=== PATIENT | male | born 1980 | race Caucasian/White ===

== ENCOUNTER 2017-05-31 15:56 | Inpatient (IN) | payer BC, OTHER ==
[2017-05-31] MEDS: SOD CHLORIDE 0.9% 1,000 ML IV ×2 (20:31→22:54)
[2017-05-31] MEDS: ONDANSETRON 4 MG INJ IV ×2 (20:31→22:07)
[2017-05-31 20:46] LABS: ADD MAN DIFF? NO
[2017-05-31 20:48] LABS: WHITE BLOOD COUNT 12.9 10^3/ul (4.8-10.8)
[2017-05-31 20:48] LABS: BASOPHILS % 0.2 % (0.0-2.0); HEMATOCRIT 37.1 % (42.0-52.0); LYMPHOCYTES # 1.4 10^3/ul (0.8-2.9); LYMPHOCYTES % 10.8 % (15.0-51.0); MEAN CORPUSCULAR HEMOGLOBIN 30.3 pg (29.0-33.0); MEAN CORPUSCULAR VOLUME 86.5 fl (82.0-101.0); MONOCYTE # 1.2 10^3/ul (0.3-0.9); MONOCYTES % 9.4 % (0.0-11.0); NEUTROPHIL # 10.2 10^3/ul (1.6-7.5); NEUTROPHILS % 78.9 % (39.0-77.0); PLATELET COUNT 234 10^3/UL (140-415); RED BLOOD COUNT 4.29 10^6/ul (4.70-6.10); RED CELL DISTRIBUTION WIDTH 11.8 % (11.5-14.5)
[2017-05-31 21:13] LABS: ALANINE AMINOTRANSFERASE 48 IU/L (13-69); ALBUMIN 4.8 g/dl (3.3-4.9); ALBUMIN/GLOBULIN RATIO 1.45; ALKALINE PHOSPHATASE 102 IU/L (42-121); ANION GAP 32 (8-16); ASPARTATE AMINO TRANSFERASE 30 IU/L (15-46); BILIRUBIN,INDIRECT 0.9 mg/dl (0-1.1); BILIRUBIN,TOTAL 0.9 mg/dl (0.2-1.3); BLOOD UREA NITROGEN 37 mg/dl (7-20); CALCIUM 10.2 mg/dl (8.4-10.2); CARBON DIOXIDE 18 mmol/L (21-31); CHLORIDE 88 mmol/L (97-110); CREATININE 1.04 mg/dl (0.61-1.24); GLUCOSE 328 mg/dl (70-220); LIPASE 28 U/L (23-300); POTASSIUM 4.7 mmol/L (3.5-5.1); SODIUM 133 mmol/L (135-144); TOTAL PROTEIN 8.1 g/dl (6.1-8.1)
[2017-05-31] MEDS ORDERED: DEXTROSE 50% 50 ML SYRINGE IV ×2 (23:30)
[2017-05-31] MEDS: ACCU-CHEK XX (23:48)
[2017-05-31] MEDS: INSULIN REGULAR, HUMAN 100 UNIT/1 ML 3ML VIAL SC (23:48)
[2017-06-01] MEDS: ACCU-CHEK XX ×9 (00:30→20:05)
[2017-06-01] MEDS ORDERED: DOCUSATE SODIUM 100 MG CAP PO (01:30)
[2017-06-01] MEDS ORDERED: BISACODYL (EC) 5 MG TAB PO (01:30)
[2017-06-01] MEDS ORDERED: DEXTROSE 50% 50 ML SYRINGE IV ×6 (01:30→16:00)
[2017-06-01 01:40] LABS: ADD UMIC YES; UR ASCORBIC ACID NEGATIVE (NEGATIVE); UR BILIRUBIN (Dip) NEGATIVE (NEGATIVE); UR BLOOD (Dip) 1+ mg/dL (NEGATIVE); UR CLARITY CLEAR (CLEAR); UR COLOR STRAW (YELLOW); UR GLUCOSE (Dip) 3+ mg/dL (NEGATIVE); UR KETONES (Dip) 2+ mg/dL (NEGATIVE); UR LEUKOCYTE ESTERASE (Dip) NEGATIVE Leu/ul (NEGATIVE); UR NITRITE (Dip) NEGATIVE (NEGATIVE); UR RBC 1 /HPF (0-5); UR TOTAL PROTEIN (Dip) 1+ mg/dl (NEGATIVE); UR UROBILINOGEN (Dip) NEGATIVE (NEGATIVE); UR WBC 1 /HPF (0-5)
[2017-06-01 01:46] LABS: ANION GAP 27 (8-16); BLOOD UREA NITROGEN 31 mg/dl (7-20); CALCIUM 9.1 mg/dl (8.4-10.2); CARBON DIOXIDE 17 mmol/L (21-31); CHLORIDE 98 mmol/L (97-110); GLUCOSE 226 mg/dl (70-220); POTASSIUM 4.5 mmol/L (3.5-5.1); SODIUM 137 mmol/L (135-144)
[2017-06-01] MEDS ORDERED: INSULIN HUMAN REGULAR 100 UNIT in SOD CHLORIDE 0.9% 99 ML IV ×2 (02:00→08:30)
[2017-06-01 02:04] LABS: PHOSPHORUS 4.5 mg/dl (2.5-4.9)
[2017-06-01] MEDS: ONDANSETRON 4 MG INJ IV ×4 (02:10→18:53)
[2017-06-01] MEDS: morphine 2 MG INJ IV ×3 (02:10→18:50)
[2017-06-01] MEDS: D5-NS + KCL 20 MEQ 1,000 ML IV (02:30)
[2017-06-01 02:47] LABS: ACETONE POSITIVE 1:1 (NEGATIVE)
[2017-06-01] MEDS: DEXTROSE 5%-0.45% NACL 1,000 ML IV (03:05)
[2017-06-01] MEDS: INSULIN HUMAN REGULAR 100 UNIT in SOD CHLORIDE 0.9% 99 ML IV (03:16)
[2017-06-01 03:27] LABS: HEMOGLOBIN A1C 10.8 % (0-5.9)
[2017-06-01] MEDS: METOCLOPRAMIDE 10 MG INJ IV ×4 (05:22→22:20)
[2017-06-01] MEDS: PANTOPRAZOLE 40 MG INJ IV (05:22)
[2017-06-01] MEDS: DIPHENHYDRAMINE 50 MG INJ IV (05:22)
[2017-06-01] MEDS: BISACODYL 30 ML ENEMA PR (06:30)
[2017-06-01 06:50] LABS: ANION GAP 14 (8-16); BLOOD UREA NITROGEN 30 mg/dl (7-20); CALCIUM 8.8 mg/dl (8.4-10.2); CARBON DIOXIDE 26 mmol/L (21-31); CHLORIDE 100 mmol/L (97-110); CREATININE 0.79 mg/dl (0.61-1.24); GLUCOSE 126 mg/dl (70-220); POTASSIUM 3.8 mmol/L (3.5-5.1); SODIUM 136 mmol/L (135-144)
[2017-06-01 07:43] LABS: HEMOGLOBIN A1C 11.1 % (0-5.9)
[2017-06-01 07:47] LABS: HDL CHOLESTEROL 87 mg/dl (28-63); LDL CHOLESTEROL,CALCULATED 146 mg/dl; TRIGLYCERIDES 175 mg/dl (0-149)
[2017-06-01 07:47] LABS: CHOLESTEROL 268 mg/dl (100-200)
[2017-06-01 08:10] LABS: AMPHETAMINE/METHAMPHETAMINE Negative (NEGATIVE); BARBITURATES Negative (NEGATIVE); BENZODIAZEPINES Negative (NEGATIVE); CANNABINOIDS Negative (NEGATIVE); COCAINE Negative (NEGATIVE); OPIATES Negative (NEGATIVE)
[2017-06-01] MEDS: POTASSIUM CHLORIDE (SR) 20 MEQ TAB PO (08:15)
[2017-06-01] MEDS: ACETAMINOPHEN 325 MG TAB PO (08:16)
[2017-06-01 08:29] LABS: PHOSPHORUS 4.6 mg/dl (2.5-4.9)
[2017-06-01] MEDS ORDERED: INSULIN GLARGINE [LANtus] 3 ML PEN SC (08:30)
[2017-06-01] MEDS ORDERED: ONDANSETRON 4 MG INJ IV ×2 (09:00→11:34)
[2017-06-01] MEDS ORDERED: ACETAMINOPHEN 325 MG TAB PO (09:00)
[2017-06-01 09:56] LABS: ANION GAP 17 (8-16); BLOOD UREA NITROGEN 24 mg/dl (7-20); CARBON DIOXIDE 24 mmol/L (21-31); CHLORIDE 101 mmol/L (97-110); CREATININE 0.76 mg/dl (0.61-1.24); GLUCOSE 106 mg/dl (70-220); POTASSIUM 3.8 mmol/L (3.5-5.1); SODIUM 138 mmol/L (135-144)
[2017-06-01] MEDS ORDERED: morphine 4 MG/ML VIAL IV (11:34)
[2017-06-01] MEDS ORDERED: POTASSIUM CHLORIDE (1.33 MEQ/ML PO SYG) PO (12:00)
[2017-06-01] MEDS ORDERED: POTASSIUM CHLORIDE 20 MEQ POWDER FOR ORAL SOLN PO (12:30)
[2017-06-01 14:46] LABS: ANION GAP 15 (8-16); BLOOD UREA NITROGEN 23 mg/dl (7-20); CALCIUM 8.7 mg/dl (8.4-10.2); CARBON DIOXIDE 23 mmol/L (21-31); CHLORIDE 99 mmol/L (97-110); CREATININE 0.79 mg/dl (0.61-1.24); GLUCOSE 158 mg/dl (70-220); POTASSIUM 3.8 mmol/L (3.5-5.1); SODIUM 133 mmol/L (135-144)
[2017-06-01] MEDS: POTASSIUM CHLORIDE 50 ML IVPB (14:53)
[2017-06-01] MEDS: SOD CHLORIDE 0.9% 1,000 ML IV (14:53)
[2017-06-01] MEDS ORDERED: GLUCOSE GEL 15 GRAM TUBE BUCCAL ×2 (15:00→16:00)
[2017-06-01] MEDS ORDERED: GLUCAGON 1 MG INJ IM ×2 (15:00→16:00)
[2017-06-01] MEDS ORDERED: GLUCOSE GEL 15 GRAM TUBE PO ×4 (15:00→16:00)
[2017-06-01] MEDS ORDERED: LACTATED RINGER'S 1,000 ML IV (16:00)
[2017-06-01 17:16] LABS: ANION GAP 17 (8-16); BLOOD UREA NITROGEN 23 mg/dl (7-20); CALCIUM 8.8 mg/dl (8.4-10.2); CARBON DIOXIDE 22 mmol/L (21-31); CHLORIDE 98 mmol/L (97-110); CREATININE 0.74 mg/dl (0.61-1.24); GLUCOSE 184 mg/dl (70-220); POTASSIUM 4.2 mmol/L (3.5-5.1); SODIUM 133 mmol/L (135-144)
[2017-06-01] MEDS: INSULIN ASPART [NOVOLOG] 3 ML PEN SC ×3 (17:35→22:32)
[2017-06-01] MEDS: LACTULOSE 30ML CUP PO (18:03)
[2017-06-01] MEDS: MAGNESIUM CITRATE 300 ML BTL PO (18:55)
[2017-06-01] MEDS: ATORVASTATIN 40 MG TAB PO (21:00)
[2017-06-01 21:19] LABS: ANION GAP 17 (8-16); BLOOD UREA NITROGEN 22 mg/dl (7-20); CALCIUM 8.9 mg/dl (8.4-10.2); CARBON DIOXIDE 21 mmol/L (21-31); CHLORIDE 98 mmol/L (97-110); CREATININE 0.78 mg/dl (0.61-1.24); GLUCOSE 215 mg/dl (70-220); POTASSIUM 4.2 mmol/L (3.5-5.1); SODIUM 132 mmol/L (135-144)
[2017-06-01] MEDS: LORAZEPAM 2 MG INJ IV (23:41)
[2017-06-02] MEDS: ACCU-CHEK XX ×4 (02:00→20:01)
[2017-06-02] MEDS: METOCLOPRAMIDE 10 MG INJ IV ×4 (04:05→22:17)
[2017-06-02] MEDS: PANTOPRAZOLE 40 MG INJ IV (05:26)
[2017-06-02 05:28] LABS: ADD MAN DIFF? NO
[2017-06-02 05:51] LABS: WHITE BLOOD COUNT 6.1 10^3/ul (4.8-10.8)
[2017-06-02 05:51] LABS: BASOPHILS % 0.2 % (0.0-2.0); HEMATOCRIT 32.4 % (42.0-52.0); HEMOGLOBIN 11.5 g/dl (14.0-18.0); LYMPHOCYTES # 1.4 10^3/ul (0.8-2.9); LYMPHOCYTES % 23.5 % (15.0-51.0); MEAN CORPUSCULAR HEMOGLOBIN 30.4 pg (29.0-33.0); MEAN CORPUSCULAR HGB CONC 35.5 g/dl (32.0-37.0); MEAN CORPUSCULAR VOLUME 85.7 fl (82.0-101.0); MEAN PLATELET VOLUME 9.1 fl (7.4-10.4); MONOCYTE # 0.7 10^3/ul (0.3-0.9); MONOCYTES % 11.6 % (0.0-11.0); NEUTROPHILS % 64.4 % (39.0-77.0); PLATELET COUNT 196 10^3/UL (140-415); RED BLOOD COUNT 3.78 10^6/ul (4.70-6.10); RED CELL DISTRIBUTION WIDTH 11.5 % (11.5-14.5)
[2017-06-02 06:20] LABS: PHOSPHORUS 2.8 mg/dl (2.5-4.9)
[2017-06-02 06:35] LABS: ANION GAP 20 (8-16); BLOOD UREA NITROGEN 21 mg/dl (7-20); CALCIUM 8.9 mg/dl (8.4-10.2); CARBON DIOXIDE 23 mmol/L (21-31); CHLORIDE 96 mmol/L (97-110); CREATININE 0.79 mg/dl (0.61-1.24); GLUCOSE 226 mg/dl (70-220); MAGNESIUM 2.4 mg/dl (1.7-2.5); SODIUM 135 mmol/L (135-144)
[2017-06-02] MEDS ORDERED: VANCOMYCIN IV PER PHARMACY XX (07:30)
[2017-06-02] MEDS: INSULIN ASPART [NOVOLOG] 3 ML PEN SC ×7 (08:19→20:07)
[2017-06-02] MEDS: INSULIN GLARGINE [LANtus] 3 ML PEN SC (08:20)
[2017-06-02] MEDS: VANCOMYCIN 1.25 GM in SODIUM CHLORIDE 0.45 % 250 ML IVPB (09:13)
[2017-06-02] MEDS: VANCOMYCIN 750 MG in DEXTROSE 5% 150 ML IVPB (17:23)
[2017-06-02] MEDS: ATORVASTATIN 40 MG TAB PO (20:02)
[2017-06-03] MEDS: VANCOMYCIN 750 MG in DEXTROSE 5% 150 ML IVPB ×3 (01:11→17:03)
[2017-06-03] MEDS: ACCU-CHEK XX ×4 (02:46→19:42)
[2017-06-03] MEDS: METOCLOPRAMIDE 10 MG INJ IV ×4 (05:23→22:00)
[2017-06-03] MEDS: PANTOPRAZOLE 40 MG INJ IV (05:24)
[2017-06-03] MEDS: INSULIN ASPART [NOVOLOG] 3 ML PEN SC ×8 (08:03→23:14)
[2017-06-03] MEDS: INSULIN GLARGINE [LANtus] 3 ML PEN SC (08:04)
[2017-06-03 08:31] LABS: ADD MAN DIFF? NO
[2017-06-03 08:36] LABS: BASOPHILS % 0.5 % (0.0-2.0); EOSINOPHILS % 0.5 % (0.0-7.0); HEMATOCRIT 31.9 % (42.0-52.0); HEMOGLOBIN 11.3 g/dl (14.0-18.0); LYMPHOCYTES # 1.2 10^3/ul (0.8-2.9); LYMPHOCYTES % 28.4 % (15.0-51.0); MEAN CORPUSCULAR HEMOGLOBIN 30.1 pg (29.0-33.0); MEAN CORPUSCULAR HGB CONC 35.4 g/dl (32.0-37.0); MEAN CORPUSCULAR VOLUME 84.8 fl (82.0-101.0); MONOCYTE # 0.6 10^3/ul (0.3-0.9); MONOCYTES % 13.5 % (0.0-11.0); NEUTROPHIL # 2.3 10^3/ul (1.6-7.5); NEUTROPHILS % 56.9 % (39.0-77.0); PLATELET COUNT 177 10^3/UL (140-415); RED BLOOD COUNT 3.76 10^6/ul (4.70-6.10); RED CELL DISTRIBUTION WIDTH 11.3 % (11.5-14.5)
[2017-06-03 08:36] LABS: WHITE BLOOD COUNT 4.1 10^3/ul (4.8-10.8)
[2017-06-03 09:12] LABS: ANION GAP 12 (8-16); BLOOD UREA NITROGEN 20 mg/dl (7-20); CALCIUM 8.5 mg/dl (8.4-10.2); CARBON DIOXIDE 30 mmol/L (21-31); CHLORIDE 97 mmol/L (97-110); CREATININE 0.75 mg/dl (0.61-1.24); GLUCOSE 245 mg/dl (70-220); POTASSIUM 3.7 mmol/L (3.5-5.1); SODIUM 135 mmol/L (135-144)
[2017-06-03 09:25] LABS: PHOSPHORUS 3.2 mg/dl (2.5-4.9)
[2017-06-03 09:25] LABS: MAGNESIUM 2.1 mg/dl (1.7-2.5)
[2017-06-03] MEDS: SOD CHLORIDE 0.9% 1,000 ML IV (15:13)
[2017-06-03 19:35] LABS: IRON 55 ug/dl (35-150)
[2017-06-03 19:45] LABS: % IRON SATURATION 22 % SAT (22-52); TOTAL IRON BINDING CAPACITY 245 ug/dl (241-421)
[2017-06-03 20:16] LABS: GLUCOSE 506 mg/dl (70-220)
[2017-06-03] MEDS: ATORVASTATIN 40 MG TAB PO (20:42)
[2017-06-04] MEDS: VANCOMYCIN 750 MG in DEXTROSE 5% 150 ML IVPB ×3 (01:04→16:24)
[2017-06-04] MEDS: ACCU-CHEK XX ×4 (02:00→20:05)
[2017-06-04] MEDS: METOCLOPRAMIDE 10 MG INJ IV ×4 (04:00→22:00)
[2017-06-04] MEDS: PANTOPRAZOLE 40 MG INJ IV (05:34)
[2017-06-04 07:08] LABS: ADD MAN DIFF? NO
[2017-06-04 07:15] LABS: BASOPHILS % 0.6 % (0.0-2.0); EOSINOPHILS # 0.1 10^3/ul (0.0-0.5); EOSINOPHILS % 1.7 % (0.0-7.0); HEMATOCRIT 32.8 % (42.0-52.0); HEMOGLOBIN 11.6 g/dl (14.0-18.0); LYMPHOCYTES # 1.3 10^3/ul (0.8-2.9); LYMPHOCYTES % 34.4 % (15.0-51.0); MEAN CORPUSCULAR HEMOGLOBIN 29.7 pg (29.0-33.0); MEAN CORPUSCULAR HGB CONC 35.4 g/dl (32.0-37.0); MEAN CORPUSCULAR VOLUME 83.9 fl (82.0-101.0); MONOCYTE # 0.6 10^3/ul (0.3-0.9); NEUTROPHIL # 1.7 10^3/ul (1.6-7.5); NEUTROPHILS % 47.3 % (39.0-77.0); PLATELET COUNT 176 10^3/UL (140-415); RED BLOOD COUNT 3.91 10^6/ul (4.70-6.10); RED CELL DISTRIBUTION WIDTH 11.4 % (11.5-14.5)
[2017-06-04 07:15] LABS: WHITE BLOOD COUNT 3.6 10^3/ul (4.8-10.8)
[2017-06-04 07:38] LABS: BLOOD UREA NITROGEN 21 mg/dl (7-20); CALCIUM 9.3 mg/dl (8.4-10.2); CHLORIDE 94 mmol/L (97-110); CREATININE 0.84 mg/dl (0.61-1.24); GLUCOSE 319 mg/dl (70-220); POTASSIUM 4.6 mmol/L (3.5-5.1)
[2017-06-04 07:43] LABS: PHOSPHORUS 4.1 mg/dl (2.5-4.9)
[2017-06-04 07:43] LABS: MAGNESIUM 1.8 mg/dl (1.7-2.5)
[2017-06-04 07:50] LABS: ANION GAP 20 (8-16)
[2017-06-04] MEDS: INSULIN GLARGINE [LANtus] 3 ML PEN SC ×2 (08:14→12:02)
[2017-06-04 08:36] LABS: CARBON DIOXIDE 27 mmol/L (21-31); SODIUM 134 mmol/L (135-144)
[2017-06-04] MEDS: INSULIN ASPART [NOVOLOG] 3 ML PEN SC ×8 (08:39→21:00)
[2017-06-04] MEDS: LACTULOSE 30ML CUP PO (11:14)
[2017-06-04] MEDS: MAGNESIUM HYDROXIDE 30ML CUP PO (11:14)
[2017-06-04] MEDS: ATORVASTATIN 40 MG TAB PO (21:50)
[2017-06-05] MEDS: VANCOMYCIN 750 MG in DEXTROSE 5% 150 ML IVPB ×3 (00:51→17:27)
[2017-06-05] MEDS: ACCU-CHEK XX ×4 (02:00→20:06)
[2017-06-05] MEDS: METOCLOPRAMIDE 10 MG INJ IV ×4 (04:00→22:00)
[2017-06-05 05:15] LABS: ADD MAN DIFF? NO
[2017-06-05 05:24] LABS: WHITE BLOOD COUNT 4.9 10^3/ul (4.8-10.8)
[2017-06-05 05:24] LABS: BASOPHILS % 0.4 % (0.0-2.0); EOSINOPHILS # 0.1 10^3/ul (0.0-0.5); EOSINOPHILS % 1.9 % (0.0-7.0); HEMATOCRIT 33.5 % (42.0-52.0); HEMOGLOBIN 12.2 g/dl (14.0-18.0); LYMPHOCYTES # 1.6 10^3/ul (0.8-2.9); LYMPHOCYTES % 32.9 % (15.0-51.0); MEAN CORPUSCULAR HGB CONC 36.4 g/dl (32.0-37.0); MEAN PLATELET VOLUME 9.2 fl (7.4-10.4); MONOCYTE # 0.5 10^3/ul (0.3-0.9); MONOCYTES % 11.1 % (0.0-11.0); NEUTROPHIL # 2.6 10^3/ul (1.6-7.5); NEUTROPHILS % 53.3 % (39.0-77.0); PLATELET COUNT 179 10^3/UL (140-415); RED BLOOD COUNT 3.94 10^6/ul (4.70-6.10); RED CELL DISTRIBUTION WIDTH 11.5 % (11.5-14.5)
[2017-06-05 05:55] LABS: ANION GAP 14 (8-16); BLOOD UREA NITROGEN 23 mg/dl (7-20); CALCIUM 9.6 mg/dl (8.4-10.2); CARBON DIOXIDE 32 mmol/L (21-31); CHLORIDE 96 mmol/L (97-110); CREATININE 0.92 mg/dl (0.61-1.24); GLUCOSE 272 mg/dl (70-220); MAGNESIUM 1.9 mg/dl (1.7-2.5); PHOSPHORUS 5.1 mg/dl (2.5-4.9); POTASSIUM 3.9 mmol/L (3.5-5.1); SODIUM 138 mmol/L (135-144)
[2017-06-05] MEDS: PANTOPRAZOLE 40 MG INJ IV (06:23)
[2017-06-05] MEDS: INSULIN GLARGINE [LANtus] 3 ML PEN SC (08:25)
[2017-06-05] MEDS: INSULIN ASPART [NOVOLOG] 3 ML PEN SC ×7 (08:26→21:00)
[2017-06-05 14:26] LABS: CREATININE, RANDOM URINE 60 mg/dL (20-370); MICROALBUMIN 14.8 mg/dL; MICROALBUMIN/CREATININE RATIO 247 (<30)
[2017-06-05] MEDS: ATORVASTATIN 40 MG TAB PO (20:06)
[2017-06-06 01:33] LABS: VANCOMYCIN,TROUGH 13.4 ug/ml (10.0-20.0)
[2017-06-06] MEDS: ACCU-CHEK XX ×4 (02:00→20:05)
[2017-06-06] MEDS: VANCOMYCIN 750 MG in DEXTROSE 5% 150 ML IVPB ×2 (02:14→08:36)
[2017-06-06] MEDS: METOCLOPRAMIDE 10 MG INJ IV ×4 (04:00→22:00)
[2017-06-06] MEDS: PANTOPRAZOLE (EC) 40 MG TAB PO (05:29)
[2017-06-06 05:57] LABS: ADD MAN DIFF? NO
[2017-06-06 06:04] LABS: WHITE BLOOD COUNT 5.4 10^3/ul (4.8-10.8)
[2017-06-06 06:04] LABS: BASOPHILS % 0.4 % (0.0-2.0); EOSINOPHILS # 0.1 10^3/ul (0.0-0.5); EOSINOPHILS % 1.3 % (0.0-7.0); HEMATOCRIT 32.9 % (42.0-52.0); HEMOGLOBIN 11.7 g/dl (14.0-18.0); LYMPHOCYTES # 1.9 10^3/ul (0.8-2.9); LYMPHOCYTES % 35.7 % (15.0-51.0); MEAN CORPUSCULAR HEMOGLOBIN 30.5 pg (29.0-33.0); MEAN CORPUSCULAR HGB CONC 35.6 g/dl (32.0-37.0); MEAN CORPUSCULAR VOLUME 85.7 fl (82.0-101.0); MEAN PLATELET VOLUME 9.3 fl (7.4-10.4); MONOCYTE # 0.6 10^3/ul (0.3-0.9); MONOCYTES % 11.2 % (0.0-11.0); NEUTROPHIL # 2.7 10^3/ul (1.6-7.5); PLATELET COUNT 193 10^3/UL (140-415); RED BLOOD COUNT 3.84 10^6/ul (4.70-6.10); RED CELL DISTRIBUTION WIDTH 11.8 % (11.5-14.5)
[2017-06-06 06:25] LABS: ANION GAP 14 (8-16); BLOOD UREA NITROGEN 26 mg/dl (7-20); CALCIUM 9.4 mg/dl (8.4-10.2); CARBON DIOXIDE 34 mmol/L (21-31); CHLORIDE 96 mmol/L (97-110); CREATININE 0.93 mg/dl (0.61-1.24); GLUCOSE 180 mg/dl (70-220); MAGNESIUM 1.8 mg/dl (1.7-2.5); PHOSPHORUS 4.5 mg/dl (2.5-4.9); POTASSIUM 3.8 mmol/L (3.5-5.1); SODIUM 140 mmol/L (135-144)
[2017-06-06] MEDS: INSULIN GLARGINE [LANtus] 3 ML PEN SC (08:30)
[2017-06-06] MEDS: INSULIN ASPART [NOVOLOG] 3 ML PEN SC ×7 (08:32→21:00)
[2017-06-06] MEDS: CEFTRIAXONE 1 GM/50 ML (PMX) 50 ML IVPB (15:22)
[2017-06-06] MEDS: ATORVASTATIN 40 MG TAB PO (20:57)
[2017-06-06 21:08] LABS: GLUCOSE 95 mg/dl (70-220)
[2017-06-07] MEDS: ACCU-CHEK XX ×4 (02:00→20:33)
[2017-06-07] MEDS: METOCLOPRAMIDE 10 MG INJ IV ×2 (04:00→09:26)
[2017-06-07] MEDS: PANTOPRAZOLE (EC) 40 MG TAB PO (06:02)
[2017-06-07 07:58] LABS: ADD MAN DIFF? NO
[2017-06-07 08:04] LABS: BASOPHILS % 0.4 % (0.0-2.0); EOSINOPHILS % 0.8 % (0.0-7.0); HEMATOCRIT 31.6 % (42.0-52.0); HEMOGLOBIN 11.3 g/dl (14.0-18.0); LYMPHOCYTES # 1.2 10^3/ul (0.8-2.9); LYMPHOCYTES % 23.2 % (15.0-51.0); MEAN CORPUSCULAR HEMOGLOBIN 30.6 pg (29.0-33.0); MEAN CORPUSCULAR HGB CONC 35.8 g/dl (32.0-37.0); MEAN CORPUSCULAR VOLUME 85.6 fl (82.0-101.0); MEAN PLATELET VOLUME 9.2 fl (7.4-10.4); MONOCYTE # 0.6 10^3/ul (0.3-0.9); MONOCYTES % 11.7 % (0.0-11.0); NEUTROPHIL # 3.2 10^3/ul (1.6-7.5); NEUTROPHILS % 63.5 % (39.0-77.0); PLATELET COUNT 188 10^3/UL (140-415); RED BLOOD COUNT 3.69 10^6/ul (4.70-6.10); RED CELL DISTRIBUTION WIDTH 11.9 % (11.5-14.5)
[2017-06-07 08:04] LABS: WHITE BLOOD COUNT 5.1 10^3/ul (4.8-10.8)
[2017-06-07] MEDS: INSULIN ASPART [NOVOLOG] 3 ML PEN SC ×7 (08:04→20:33)
[2017-06-07] MEDS: INSULIN GLARGINE [LANtus] 3 ML PEN SC (08:06)
[2017-06-07 08:40] LABS: ANION GAP 13 (8-16); BLOOD UREA NITROGEN 22 mg/dl (7-20); CALCIUM 8.9 mg/dl (8.4-10.2); CARBON DIOXIDE 31 mmol/L (21-31); CHLORIDE 98 mmol/L (97-110); CREATININE 0.78 mg/dl (0.61-1.24); GLUCOSE 220 mg/dl (70-220); MAGNESIUM 1.8 mg/dl (1.7-2.5); PHOSPHORUS 3.5 mg/dl (2.5-4.9); POTASSIUM 4.1 mmol/L (3.5-5.1); SODIUM 138 mmol/L (135-144)
[2017-06-07] MEDS ORDERED: METOCLOPRAMIDE 10 MG TAB PO (12:30)
[2017-06-07] MEDS: CEFTRIAXONE 1 GM/50 ML (PMX) 50 ML IVPB (14:53)
[2017-06-07] MEDS: ATORVASTATIN 40 MG TAB PO (20:33)
[2017-06-08] MEDS: ACCU-CHEK XX ×3 (02:00→14:13)
[2017-06-08] MEDS: PANTOPRAZOLE (EC) 40 MG TAB PO (05:40)
[2017-06-08] MEDS: INSULIN ASPART [NOVOLOG] 3 ML PEN SC ×6 (07:54→17:07)
[2017-06-08] MEDS: INSULIN GLARGINE [LANtus] 3 ML PEN SC (07:56)
[2017-06-08] MEDS: CEFTRIAXONE 1 GM/50 ML (PMX) 50 ML IVPB (14:17)
== END 2017-06-08 18:20 | disposition home or self-care (01) | DRG 638 ==
LOC: MS3 06-01 01:32 → E/R 15:56 → PP2 06-01 18:30
PROVIDERS: Family Medicine
DX: E10.10 Type 1 diabetes mellitus with ketoacidosis without coma (principal); R65.10 Systemic inflammatory response syndrome (SIRS) of non-infectious origin without acute organ dysfunction; K31.84 Gastroparesis; I10 Essential (primary) hypertension; D72.829 Elevated white blood cell count, unspecified; R06.6 Hiccough; E78.5 Hyperlipidemia, unspecified; B95.4 Other streptococcus as the cause of diseases classified elsewhere
CPT/HCPCS: 36415; 74176; 80048; 80053; 80061; 80202; 80307; 81001; 82010; 82043; 82728; 82947; 82962; 83036; 83540; 83690; 83735; 84100; 84443; 85025; 87040; 87400; 93306; 96365; 96366; 96372; 96375; 96376; 99291-25

== ENCOUNTER 2017-06-09 22:55 | Inpatient (IN) | payer BC ==
[2017-06-10 00:14] LABS: ADD MAN DIFF? NO
[2017-06-10 00:20] LABS: BASOPHILS % 0.6 % (0.0-2.0); HEMATOCRIT 34.3 % (42.0-52.0); HEMOGLOBIN 12.2 g/dl (14.0-18.0); LYMPHOCYTES % 15.3 % (15.0-51.0); MEAN CORPUSCULAR HGB CONC 35.6 g/dl (32.0-37.0); MEAN CORPUSCULAR VOLUME 87.1 fl (82.0-101.0); MEAN PLATELET VOLUME 9.2 fl (7.4-10.4); MONOCYTE # 0.3 10^3/ul (0.3-0.9); MONOCYTES % 5.3 % (0.0-11.0); NEUTROPHIL # 4.9 10^3/ul (1.6-7.5); NEUTROPHILS % 78.3 % (39.0-77.0); PLATELET COUNT 244 10^3/UL (140-415); RED BLOOD COUNT 3.94 10^6/ul (4.70-6.10); RED CELL DISTRIBUTION WIDTH 12.2 % (11.5-14.5)
[2017-06-10 00:20] LABS: WHITE BLOOD COUNT 6.3 10^3/ul (4.8-10.8)
[2017-06-10] MEDS: ONDANSETRON 4 MG INJ IV ×3 (00:21→15:45)
[2017-06-10] MEDS: METOCLOPRAMIDE 10 MG INJ IV ×2 (00:21→22:46)
[2017-06-10] MEDS: SOD CHLORIDE 0.9% 1,000 ML IV (00:21)
[2017-06-10 00:49] LABS: ALANINE AMINOTRANSFERASE 44 IU/L (13-69); ALBUMIN 4.5 g/dl (3.3-4.9); ALBUMIN/GLOBULIN RATIO 1.28; ALKALINE PHOSPHATASE 83 IU/L (42-121); ANION GAP 21 (8-16); ASPARTATE AMINO TRANSFERASE 37 IU/L (15-46); BILIRUBIN,INDIRECT 0.3 mg/dl (0-1.1); BILIRUBIN,TOTAL 0.3 mg/dl (0.2-1.3); BLOOD UREA NITROGEN 31 mg/dl (7-20); CALCIUM 10.2 mg/dl (8.4-10.2); CARBON DIOXIDE 28 mmol/L (21-31); CHLORIDE 95 mmol/L (97-110); CREATININE 0.95 mg/dl (0.61-1.24); GLUCOSE 255 mg/dl (70-220); LIPASE 35 U/L (23-300); MAGNESIUM 1.7 mg/dl (1.7-2.5); POTASSIUM 4.9 mmol/L (3.5-5.1); SODIUM 139 mmol/L (135-144)
[2017-06-10 01:17] LABS: LACTIC ACID 1.9 mmol/L (0.5-2.0)
[2017-06-10] MEDS: LORAZEPAM 2 MG INJ IV (01:38)
[2017-06-10] MEDS: SOD CHLORIDE 0.9% 2,000 ML IV (01:38)
[2017-06-10 02:35] LABS: LACTIC ACID 1.3 mmol/L (0.5-2.0)
[2017-06-10] MEDS: DEXTROSE 5%-0.45% NACL 1,000 ML IV ×2 (06:12→16:12)
[2017-06-10] MEDS ORDERED: GLUCAGON 1 MG INJ IM (06:30)
[2017-06-10] MEDS ORDERED: GLUCOSE GEL 15 GRAM TUBE PO ×2 (06:30)
[2017-06-10] MEDS ORDERED: DEXTROSE 50% 50 ML SYRINGE IV ×2 (06:30)
[2017-06-10] MEDS ORDERED: GLUCOSE GEL 15 GRAM TUBE BUCCAL (06:30)
[2017-06-10] MEDS ORDERED: ALBUTEROL/IPRATROPIUM (NEB) 3 ML AMP HHN (06:30)
[2017-06-10] MEDS ORDERED: NACL 0.9% 3 ML SYG IV (06:30)
[2017-06-10 07:00] LABS: ANION GAP 17 (8-16); BLOOD UREA NITROGEN 25 mg/dl (7-20); CALCIUM 8.2 mg/dl (8.4-10.2); CARBON DIOXIDE 24 mmol/L (21-31); CHLORIDE 103 mmol/L (97-110); CREATININE 0.77 mg/dl (0.61-1.24); GLUCOSE 233 mg/dl (70-220); POTASSIUM 4.5 mmol/L (3.5-5.1); SODIUM 139 mmol/L (135-144)
[2017-06-10 07:15] LABS: ADD MAN DIFF? NO
[2017-06-10 07:16] LABS: BASOPHILS % 0.3 % (0.0-2.0); HEMATOCRIT 29.1 % (42.0-52.0); HEMOGLOBIN 10.1 g/dl (14.0-18.0); LYMPHOCYTES # 0.9 10^3/ul (0.8-2.9); LYMPHOCYTES % 13.7 % (15.0-51.0); MEAN CORPUSCULAR HEMOGLOBIN 30.7 pg (29.0-33.0); MEAN CORPUSCULAR HGB CONC 34.7 g/dl (32.0-37.0); MEAN CORPUSCULAR VOLUME 88.4 fl (82.0-101.0); MEAN PLATELET VOLUME 9.5 fl (7.4-10.4); MONOCYTE # 0.2 10^3/ul (0.3-0.9); MONOCYTES % 3.3 % (0.0-11.0); NEUTROPHIL # 5.5 10^3/ul (1.6-7.5); NEUTROPHILS % 82.4 % (39.0-77.0); PLATELET COUNT 219 10^3/UL (140-415); RED BLOOD COUNT 3.29 10^6/ul (4.70-6.10); RED CELL DISTRIBUTION WIDTH 12.1 % (11.5-14.5)
[2017-06-10 07:16] LABS: WHITE BLOOD COUNT 6.7 10^3/ul (4.8-10.8)
[2017-06-10] MEDS ORDERED: ONDANSETRON 4 MG INJ IV (08:00)
[2017-06-10] MEDS ORDERED: ACETAMINOPHEN 325 MG TAB PO (08:00)
[2017-06-10 08:24] LABS: ALANINE AMINOTRANSFERASE 40 IU/L (13-69); ALBUMIN 3.5 g/dl (3.3-4.9); ALKALINE PHOSPHATASE 58 IU/L (42-121); ANION GAP 16 (8-16); ASPARTATE AMINO TRANSFERASE 28 IU/L (15-46); BILIRUBIN,INDIRECT 0.3 mg/dl (0-1.1); BILIRUBIN,TOTAL 0.3 mg/dl (0.2-1.3); BLOOD UREA NITROGEN 24 mg/dl (7-20); CALCIUM 8.2 mg/dl (8.4-10.2); CARBON DIOXIDE 25 mmol/L (21-31); CHLORIDE 102 mmol/L (97-110); CREATININE 0.76 mg/dl (0.61-1.24); GLUCOSE 225 mg/dl (70-220); POTASSIUM 4.2 mmol/L (3.5-5.1); SODIUM 139 mmol/L (135-144)
[2017-06-10] MEDS: INSULIN GLARGINE [LANtus] 3 ML PEN SC (08:31)
[2017-06-10] MEDS: INSULIN ASPART [NOVOLOG] 3 ML PEN SC ×6 (09:00→20:53)
[2017-06-10] MEDS: CEFTRIAXONE 1 GM/50 ML (PMX) 50 ML IVPB (13:00)
[2017-06-10] MEDS: BISACODYL 10 MG SUPP PR (15:45)
[2017-06-10] MEDS: ACETAMINOPHEN 325 MG TAB PO (18:38)
[2017-06-10] MEDS: ATORVASTATIN 40 MG TAB PO (20:40)
[2017-06-10] MEDS: ACETAMINOPHEN 1000MG/100ML IV 100 ML IVPB (22:12)
[2017-06-11] MEDS: INSULIN ASPART [NOVOLOG] 3 ML PEN SC ×9 (01:44→20:33)
[2017-06-11] MEDS ORDERED: ACCU-CHEK XX (02:00)
[2017-06-11] MEDS: DEXTROSE 5%-0.45% NACL 1,000 ML IV ×3 (02:12→22:05)
[2017-06-11 05:09] LABS: ADD MAN DIFF? NO
[2017-06-11 05:15] LABS: BASOPHILS % 0.6 % (0.0-2.0); EOSINOPHILS % 0.2 % (0.0-7.0); HEMATOCRIT 27.5 % (42.0-52.0); HEMOGLOBIN 9.7 g/dl (14.0-18.0); LYMPHOCYTES # 1.7 10^3/ul (0.8-2.9); LYMPHOCYTES % 32.7 % (15.0-51.0); MEAN CORPUSCULAR HEMOGLOBIN 30.8 pg (29.0-33.0); MEAN CORPUSCULAR HGB CONC 35.3 g/dl (32.0-37.0); MEAN CORPUSCULAR VOLUME 87.3 fl (82.0-101.0); MONOCYTE # 0.5 10^3/ul (0.3-0.9); MONOCYTES % 10.6 % (0.0-11.0); NEUTROPHIL # 2.8 10^3/ul (1.6-7.5); NEUTROPHILS % 55.7 % (39.0-77.0); PLATELET COUNT 217 10^3/UL (140-415); RED BLOOD COUNT 3.15 10^6/ul (4.70-6.10); RED CELL DISTRIBUTION WIDTH 11.9 % (11.5-14.5)
[2017-06-11 05:15] LABS: WHITE BLOOD COUNT 5.1 10^3/ul (4.8-10.8)
[2017-06-11] MEDS: PANTOPRAZOLE (EC) 40 MG TAB PO (05:37)
[2017-06-11 05:50] LABS: ANION GAP 11 (8-16); BLOOD UREA NITROGEN 13 mg/dl (7-20); CALCIUM 8.7 mg/dl (8.4-10.2); CARBON DIOXIDE 29 mmol/L (21-31); CHLORIDE 102 mmol/L (97-110); GLUCOSE 174 mg/dl (70-220); MAGNESIUM 1.9 mg/dl (1.7-2.5); PHOSPHORUS 3.2 mg/dl (2.5-4.9); POTASSIUM 3.2 mmol/L (3.5-5.1); SODIUM 139 mmol/L (135-144)
[2017-06-11] MEDS: INSULIN GLARGINE [LANtus] 3 ML PEN SC (09:10)
[2017-06-11] MEDS: morphine 2 MG INJ IV ×2 (09:17→17:34)
[2017-06-11] MEDS: CEFTRIAXONE 1 GM/50 ML (PMX) 50 ML IVPB (09:17)
[2017-06-11] MEDS: METOCLOPRAMIDE 5 MG TAB PO (14:30)
[2017-06-11] MEDS: ONDANSETRON 4 MG INJ IV (14:47)
[2017-06-11] MEDS: POTASSIUM CHLORIDE (SR) 20 MEQ TAB PO (16:15)
[2017-06-11] MEDS: POTASSIUM CHLORIDE 50 ML IVPB ×4 (17:34→21:40)
[2017-06-11] MEDS: METOCLOPRAMIDE 10 MG INJ IV ×2 (17:53→21:59)
[2017-06-11] MEDS ORDERED: ONDANSETRON 4 MG INJ IV (18:30)
[2017-06-11] MEDS: ATORVASTATIN 40 MG TAB PO ×2 (20:29→21:00)
[2017-06-12] MEDS: ONDANSETRON INJ 8 MG in DEXTROSE 5% 50 ML IV ×2 (00:27→12:33)
[2017-06-12] MEDS: morphine 2 MG INJ IV ×3 (00:32→17:39)
[2017-06-12] MEDS: INSULIN ASPART [NOVOLOG] 3 ML PEN SC ×9 (00:40→21:00)
[2017-06-12] MEDS: PANTOPRAZOLE (EC) 40 MG TAB PO ×2 (05:35→09:08)
[2017-06-12 05:36] LABS: ADD MAN DIFF? NO
[2017-06-12 05:45] LABS: BASOPHILS % 0.4 % (0.0-2.0); EOSINOPHILS % 0.2 % (0.0-7.0); HEMATOCRIT 29.9 % (42.0-52.0); HEMOGLOBIN 10.4 g/dl (14.0-18.0); LYMPHOCYTES # 1.4 10^3/ul (0.8-2.9); LYMPHOCYTES % 24.4 % (15.0-51.0); MEAN CORPUSCULAR HEMOGLOBIN 30.3 pg (29.0-33.0); MEAN CORPUSCULAR HGB CONC 34.8 g/dl (32.0-37.0); MEAN CORPUSCULAR VOLUME 87.2 fl (82.0-101.0); MEAN PLATELET VOLUME 8.7 fl (7.4-10.4); MONOCYTE # 0.6 10^3/ul (0.3-0.9); MONOCYTES % 9.8 % (0.0-11.0); NEUTROPHIL # 3.6 10^3/ul (1.6-7.5); NEUTROPHILS % 64.7 % (39.0-77.0); PLATELET COUNT 234 10^3/UL (140-415); RED BLOOD COUNT 3.43 10^6/ul (4.70-6.10); RED CELL DISTRIBUTION WIDTH 11.9 % (11.5-14.5)
[2017-06-12 05:45] LABS: WHITE BLOOD COUNT 5.6 10^3/ul (4.8-10.8)
[2017-06-12 06:18] LABS: ALBUMIN 3.3 g/dl (3.3-4.9); ANION GAP 14 (8-16); BLOOD UREA NITROGEN 8 mg/dl (7-20); CALCIUM 8.6 mg/dl (8.4-10.2); CARBON DIOXIDE 28 mmol/L (21-31); CHLORIDE 99 mmol/L (97-110); CREATININE 0.76 mg/dl (0.61-1.24); GLUCOSE 201 mg/dl (70-220); MAGNESIUM 1.8 mg/dl (1.7-2.5); PHOSPHORUS 3.7 mg/dl (2.5-4.9); POTASSIUM 3.8 mmol/L (3.5-5.1); SODIUM 137 mmol/L (135-144)
[2017-06-12] MEDS: METOCLOPRAMIDE 10 MG INJ IV ×2 (09:07→17:39)
[2017-06-12] MEDS: DEXTROSE 5%-0.45% NACL 1,000 ML IV ×3 (09:07→20:55)
[2017-06-12] MEDS: INSULIN GLARGINE [LANtus] 3 ML PEN SC (09:13)
[2017-06-12] MEDS: CEFTRIAXONE 1 GM/50 ML (PMX) 50 ML IVPB (09:21)
[2017-06-12 15:05] LABS: IRON 36 ug/dl (35-150)
[2017-06-12 15:14] LABS: % IRON SATURATION 14 % SAT (22-52); TOTAL IRON BINDING CAPACITY 251 ug/dl (241-421)
[2017-06-12] MEDS: ATORVASTATIN 40 MG TAB PO (20:50)
[2017-06-13] MEDS: ACCU-CHEK XX (02:00)
[2017-06-13] MEDS: DEXTROSE 5%-0.45% NACL 1,000 ML IV ×3 (04:12→14:12)
[2017-06-13] MEDS: PANTOPRAZOLE (EC) 40 MG TAB PO (05:33)
[2017-06-13 06:15] LABS: ADD MAN DIFF? NO
[2017-06-13 06:19] LABS: WHITE BLOOD COUNT 5.2 10^3/ul (4.8-10.8)
[2017-06-13 06:19] LABS: BASOPHILS % 0.4 % (0.0-2.0); EOSINOPHILS % 0.4 % (0.0-7.0); HEMATOCRIT 28.2 % (42.0-52.0); LYMPHOCYTES # 1.6 10^3/ul (0.8-2.9); MEAN CORPUSCULAR HEMOGLOBIN 30.9 pg (29.0-33.0); MEAN CORPUSCULAR HGB CONC 35.5 g/dl (32.0-37.0); MEAN PLATELET VOLUME 8.7 fl (7.4-10.4); MONOCYTE # 0.6 10^3/ul (0.3-0.9); MONOCYTES % 11.9 % (0.0-11.0); NEUTROPHILS % 56.9 % (39.0-77.0); PLATELET COUNT 218 10^3/UL (140-415); RED BLOOD COUNT 3.24 10^6/ul (4.70-6.10); RED CELL DISTRIBUTION WIDTH 11.9 % (11.5-14.5)
[2017-06-13 06:49] LABS: ALBUMIN 3.1 g/dl (3.3-4.9); ANION GAP 12 (8-16); BLOOD UREA NITROGEN 5 mg/dl (7-20); CALCIUM 8.5 mg/dl (8.4-10.2); CARBON DIOXIDE 30 mmol/L (21-31); CHLORIDE 101 mmol/L (97-110); CREATININE 0.79 mg/dl (0.61-1.24); GLUCOSE 203 mg/dl (70-220); MAGNESIUM 1.7 mg/dl (1.7-2.5); POTASSIUM 3.6 mmol/L (3.5-5.1); SODIUM 139 mmol/L (135-144)
[2017-06-13] MEDS: INSULIN ASPART [NOVOLOG] 3 ML PEN SC ×6 (08:21→17:39)
[2017-06-13] MEDS: CEFTRIAXONE 1 GM/50 ML (PMX) 50 ML IVPB (10:14)
[2017-06-13] MEDS: INSULIN GLARGINE [LANtus] 3 ML PEN SC (10:36)
[2017-06-13] MEDS: METOCLOPRAMIDE 10 MG TAB PO ×2 (12:13→17:38)
[2017-06-13] MEDS: POLYETHYLENE GLYCOL 17 GM PACKET PO (12:13)
[2017-06-14] MEDS ORDERED: INSULIN GLARGINE [LANtus] 3 ML PEN SC (08:00)
== END 2017-06-13 18:30 | disposition home or self-care (01) | DRG 74 ==
LOC: MS2 06-11 10:31 → E/R 22:55 → MS1 06-10 07:40
PROVIDERS: Internal Medicine
DX: E10.43 Type 1 diabetes mellitus with diabetic autonomic (poly)neuropathy (principal); E10.65 Type 1 diabetes mellitus with hyperglycemia; K31.84 Gastroparesis; E87.6 Hypokalemia; D64.9 Anemia, unspecified
CPT/HCPCS: 36415; 74019; 80048; 80053; 80069; 82962; 83540; 83605; 83690; 83735; 84100; 85025; 87081; 96372; 96374; 96375; 96376; 99285-25

== ENCOUNTER 2017-07-22 20:05 | Inpatient (IN) | payer BC ==
[2017-07-22] MEDS: ONDANSETRON 4 MG INJ IV (23:45)
[2017-07-22] MEDS: FAMOTIDINE 20 MG INJ IV (23:45)
[2017-07-22] MEDS: morphine 4 MG/ML VIAL IV (23:46)
[2017-07-22] MEDS: SOD CHLORIDE 0.9% 1,000 ML IV (23:46)
[2017-07-22 23:52] LABS: ADD MAN DIFF? NO
[2017-07-23 00:01] LABS: BASOPHIL # 0.1 10^3/ul (0.0-0.1); BASOPHILS % 0.5 % (0.0-2.0); EOSINOPHILS % 0.1 % (0.0-7.0); HEMATOCRIT 35.6 % (42.0-52.0); HEMOGLOBIN 12.6 g/dl (14.0-18.0); LYMPHOCYTES % 8.5 % (15.0-51.0); MEAN CORPUSCULAR HEMOGLOBIN 30.7 pg (29.0-33.0); MEAN CORPUSCULAR HGB CONC 35.4 g/dl (32.0-37.0); MEAN CORPUSCULAR VOLUME 86.8 fl (82.0-101.0); MEAN PLATELET VOLUME 9.6 fl (7.4-10.4); MONOCYTE # 0.5 10^3/ul (0.3-0.9); MONOCYTES % 4.6 % (0.0-11.0); NEUTROPHIL # 9.9 10^3/ul (1.6-7.5); NEUTROPHILS % 85.9 % (39.0-77.0); PLATELET COUNT 211 10^3/UL (140-415); RED CELL DISTRIBUTION WIDTH 12.5 % (11.5-14.5)
[2017-07-23 00:01] LABS: WHITE BLOOD COUNT 11.5 10^3/ul (4.8-10.8)
[2017-07-23 00:27] LABS: ALANINE AMINOTRANSFERASE 47 IU/L (13-69); ALBUMIN 4.5 g/dl (3.3-4.9); ALBUMIN/GLOBULIN RATIO 1.32; ALKALINE PHOSPHATASE 91 IU/L (42-121); ANION GAP 15 (8-16); ASPARTATE AMINO TRANSFERASE 32 IU/L (15-46); BILIRUBIN,INDIRECT 0.7 mg/dl (0-1.1); BILIRUBIN,TOTAL 0.7 mg/dl (0.2-1.3); BLOOD UREA NITROGEN 15 mg/dl (7-20); CARBON DIOXIDE 28 mmol/L (21-31); CHLORIDE 99 mmol/L (97-110); CREATININE 0.81 mg/dl (0.61-1.24); GLUCOSE 329 mg/dl (70-220); LIPASE 18 U/L (23-300); POTASSIUM 4.3 mmol/L (3.5-5.1); SODIUM 138 mmol/L (135-144); TOTAL PROTEIN 7.9 g/dl (6.1-8.1)
[2017-07-23 00:42] LABS: TROPONIN-I < 0.012 ng/ml (0.00-0.12)
[2017-07-23 01:05] LABS: ADD UMIC YES; UR ASCORBIC ACID NEGATIVE (NEGATIVE); UR BILIRUBIN (Dip) NEGATIVE (NEGATIVE); UR BLOOD (Dip) 2+ mg/dL (NEGATIVE); UR CLARITY CLEAR (CLEAR); UR COLOR YELLOW (YELLOW); UR GLUCOSE (Dip) 3+ mg/dL (NEGATIVE); UR KETONES (Dip) 1+ mg/dL (NEGATIVE); UR LEUKOCYTE ESTERASE (Dip) NEGATIVE Leu/ul (NEGATIVE); UR MUCUS FEW /HPF (NONE SEEN); UR NITRITE (Dip) NEGATIVE (NEGATIVE); UR RBC 3 /HPF (0-5); UR SPECIFIC GRAVITY (Dip) 1.028 (1.003-1.030); UR TOTAL PROTEIN (Dip) 2+ mg/dl (NEGATIVE); UR UROBILINOGEN (Dip) NEGATIVE (NEGATIVE); UR WBC 0 /HPF (0-5)
[2017-07-23] MEDS: METOCLOPRAMIDE 10 MG INJ IV ×4 (01:16→19:26)
[2017-07-23] MEDS: LORAZEPAM 2 MG INJ IV (02:52)
[2017-07-23] MEDS ORDERED: DEXTROSE 5%-0.45% NACL 1,000 ML IV (07:23)
[2017-07-23] MEDS: ONDANSETRON 4 MG INJ IV ×4 (07:24→22:20)
[2017-07-23] MEDS: morphine 4 MG/ML VIAL IV (07:24)
[2017-07-23] MEDS ORDERED: NACL 0.9% 3 ML SYG IV (07:30)
[2017-07-23] MEDS ORDERED: KETOROLAC 30 MG INJ IV (07:30)
[2017-07-23] MEDS ORDERED: BISACODYL 10 MG SUPP PR (07:30)
[2017-07-23] MEDS: SOD CHLORIDE 0.9% 1,000 ML IV ×3 (08:27→17:59)
[2017-07-23] MEDS ORDERED: DIPHENHYDRAMINE 25 MG CAP PO (10:30)
[2017-07-23 11:21] LABS: HEMOGLOBIN A1C 7.6 % (0-5.9)
[2017-07-23] MEDS: SOD CHLORIDE 0.9% 500 ML IV ×2 (11:22→14:10)
[2017-07-23] MEDS ORDERED: GLUCOSE GEL 15 GRAM TUBE BUCCAL (11:30)
[2017-07-23] MEDS ORDERED: GLUCAGON 1 MG INJ IM (11:30)
[2017-07-23] MEDS ORDERED: DEXTROSE 50% 50 ML SYRINGE IV ×2 (11:30)
[2017-07-23] MEDS ORDERED: GLUCOSE GEL 15 GRAM TUBE PO ×2 (11:30)
[2017-07-23] MEDS: DIPHENHYDRAMINE 50 MG INJ IV (12:38)
[2017-07-23] MEDS: BISACODYL (EC) 5 MG TAB PO (12:40)
[2017-07-23] MEDS: DOCUSATE SODIUM 100 MG CAP PO (12:40)
[2017-07-23] MEDS: INSULIN ASPART [NOVOLOG] 3 ML PEN SC ×3 (14:20→20:33)
[2017-07-23] MEDS: ERYTHROMYCIN BASE (EC) 250 MG TAB PO ×2 (16:43→22:20)
[2017-07-23] MEDS: BISACODYL 10 MG SUPP PR (16:44)
[2017-07-23] MEDS: morphine 2 MG INJ IV (17:45)
[2017-07-23] MEDS: INSULIN GLARGINE [LANtus] 3 ML PEN SC (21:39)
[2017-07-24] MEDS: SOD CHLORIDE 0.9% 1,000 ML IV ×3 (01:22→13:39)
[2017-07-24] MEDS: METOCLOPRAMIDE 10 MG INJ IV ×4 (01:22→22:04)
[2017-07-24] MEDS: INSULIN ASPART [NOVOLOG] 3 ML PEN SC ×8 (01:28→22:17)
[2017-07-24] MEDS: morphine 2 MG INJ IV ×2 (01:32→22:05)
[2017-07-24] MEDS: SOD CHLORIDE 0.9% 500 ML IV (02:00)
[2017-07-24] MEDS: ACCU-CHEK XX (02:00)
[2017-07-24] MEDS: ONDANSETRON 4 MG INJ IV ×3 (06:16→22:05)
[2017-07-24] MEDS: ERYTHROMYCIN BASE (EC) 250 MG TAB PO ×4 (06:16→23:00)
[2017-07-24 07:31] LABS: ADD MAN DIFF? NO
[2017-07-24 07:36] LABS: WHITE BLOOD COUNT 10.9 10^3/ul (4.8-10.8)
[2017-07-24 07:36] LABS: BASOPHILS % 0.2 % (0.0-2.0); HEMATOCRIT 31.1 % (42.0-52.0); HEMOGLOBIN 10.7 g/dl (14.0-18.0); LYMPHOCYTES # 0.9 10^3/ul (0.8-2.9); LYMPHOCYTES % 8.5 % (15.0-51.0); MEAN CORPUSCULAR HEMOGLOBIN 30.1 pg (29.0-33.0); MEAN CORPUSCULAR HGB CONC 34.4 g/dl (32.0-37.0); MEAN CORPUSCULAR VOLUME 87.6 fl (82.0-101.0); MEAN PLATELET VOLUME 9.4 fl (7.4-10.4); MONOCYTE # 0.8 10^3/ul (0.3-0.9); MONOCYTES % 7.6 % (0.0-11.0); NEUTROPHIL # 9.1 10^3/ul (1.6-7.5); NEUTROPHILS % 83.2 % (39.0-77.0); PLATELET COUNT 191 10^3/UL (140-415); RED BLOOD COUNT 3.55 10^6/ul (4.70-6.10); RED CELL DISTRIBUTION WIDTH 12.3 % (11.5-14.5)
[2017-07-24 08:05] LABS: ALANINE AMINOTRANSFERASE 39 IU/L (13-69); ALBUMIN 3.7 g/dl (3.3-4.9); ALBUMIN/GLOBULIN RATIO 1.32; ALKALINE PHOSPHATASE 70 IU/L (42-121); ANION GAP 18 (8-16); ASPARTATE AMINO TRANSFERASE 24 IU/L (15-46); BILIRUBIN,INDIRECT 0.5 mg/dl (0-1.1); BILIRUBIN,TOTAL 0.5 mg/dl (0.2-1.3); BLOOD UREA NITROGEN 24 mg/dl (7-20); CALCIUM 8.9 mg/dl (8.4-10.2); CARBON DIOXIDE 20 mmol/L (21-31); CHLORIDE 105 mmol/L (97-110); CREATININE 0.76 mg/dl (0.61-1.24); GLUCOSE 278 mg/dl (70-220); MAGNESIUM 1.8 mg/dl (1.7-2.5); PHOSPHORUS 3.2 mg/dl (2.5-4.9); POTASSIUM 4.3 mmol/L (3.5-5.1); SODIUM 139 mmol/L (135-144); TOTAL PROTEIN 6.5 g/dl (6.1-8.1)
[2017-07-24] MEDS: BISACODYL (EC) 5 MG TAB PO (09:02)
[2017-07-24] MEDS: DOCUSATE SODIUM 100 MG CAP PO (09:03)
[2017-07-24] MEDS: INFLUENZA VIRUS VACCINE 0.5 ML (DISPENSING) IM* (09:59)
[2017-07-24] MEDS: NA PHOSPHATE/BIPHOS 133 ML ENEMA PR (12:33)
[2017-07-24] MEDS: DIPHENHYDRAMINE 50 MG INJ IV (17:43)
[2017-07-24] MEDS: INSULIN GLARGINE [LANtus] 3 ML PEN SC (22:22)
[2017-07-25] MEDS: SOD CHLORIDE 0.9% 1,000 ML IV ×5 (03:20→17:36)
[2017-07-25] MEDS: METOCLOPRAMIDE 10 MG INJ IV ×4 (03:23→21:00)
[2017-07-25] MEDS: ACCU-CHEK XX (03:30)
[2017-07-25] MEDS: morphine 2 MG INJ IV (03:50)
[2017-07-25] MEDS: ONDANSETRON 4 MG INJ IV ×3 (05:56→21:00)
[2017-07-25] MEDS: ERYTHROMYCIN BASE (EC) 250 MG TAB PO ×2 (05:56→13:49)
[2017-07-25] MEDS: INSULIN ASPART [NOVOLOG] 3 ML PEN SC ×7 (07:40→21:00)
[2017-07-25 08:29] LABS: ADD MAN DIFF? NO
[2017-07-25 08:37] LABS: BASOPHILS % 0.2 % (0.0-2.0); HEMATOCRIT 31.6 % (42.0-52.0); LYMPHOCYTES % 11.4 % (15.0-51.0); MEAN CORPUSCULAR HEMOGLOBIN 30.4 pg (29.0-33.0); MEAN CORPUSCULAR HGB CONC 34.8 g/dl (32.0-37.0); MEAN CORPUSCULAR VOLUME 87.3 fl (82.0-101.0); MEAN PLATELET VOLUME 8.9 fl (7.4-10.4); MONOCYTE # 0.7 10^3/ul (0.3-0.9); MONOCYTES % 7.3 % (0.0-11.0); NEUTROPHIL # 7.2 10^3/ul (1.6-7.5); NEUTROPHILS % 80.8 % (39.0-77.0); PLATELET COUNT 177 10^3/UL (140-415); RED BLOOD COUNT 3.62 10^6/ul (4.70-6.10); RED CELL DISTRIBUTION WIDTH 11.9 % (11.5-14.5)
[2017-07-25 08:53] LABS: ANION GAP 14 (8-16); BLOOD UREA NITROGEN 14 mg/dl (7-20); CALCIUM 8.8 mg/dl (8.4-10.2); CARBON DIOXIDE 28 mmol/L (21-31); CHLORIDE 100 mmol/L (97-110); CREATININE 0.71 mg/dl (0.61-1.24); GLUCOSE 130 mg/dl (70-220); POTASSIUM 3.5 mmol/L (3.5-5.1); SODIUM 138 mmol/L (135-144)
[2017-07-25] MEDS: DOCUSATE SODIUM 100 MG CAP PO (09:58)
[2017-07-25] MEDS: BISACODYL (EC) 5 MG TAB PO (09:58)
[2017-07-25] MEDS ORDERED: LIDOCAINE 100 MG SYRINGE (21:38)
[2017-07-25] MEDS ORDERED: MIDAZOLAM 1 MG/ML 2 ML INJ (21:38)
[2017-07-25] MEDS ORDERED: PROPOFOL 20 ML (21:39)
[2017-07-25] MEDS ORDERED: PROCHLORPERAZINE 10 MG INJ IV (22:00)
[2017-07-25] MEDS ORDERED: HALOPERIDOL 5 MG INJ IV (22:00)
[2017-07-25] MEDS ORDERED: ONDANSETRON 4 MG INJ IV (22:00)
[2017-07-25] MEDS ORDERED: HYDROmorphONE (0.2 MG/ML) 10ML SYG IV ×2 (22:00)
[2017-07-25] MEDS ORDERED: FENTAnyl 50 MCG/ML VIAL IV ×2 (22:00)
[2017-07-25] MEDS ORDERED: METOCLOPRAMIDE 10 MG INJ IV (22:00)
[2017-07-25] MEDS: INSULIN GLARGINE [LANtus] 3 ML PEN SC (23:00)
[2017-07-26] MEDS: KETOROLAC 15 MG INJ IV (01:40)
[2017-07-26] MEDS: LIDOCAINE/MYLANTA 40 ML BTL PO (01:40)
[2017-07-26] MEDS: ACCU-CHEK XX (02:00)
[2017-07-26] MEDS: METOCLOPRAMIDE 10 MG INJ IV ×4 (02:26→20:18)
[2017-07-26] MEDS: SOD CHLORIDE 0.9% 1,000 ML IV ×3 (05:05→22:31)
[2017-07-26] MEDS: ERYTHROMYCIN BASE (EC) 250 MG TAB PO ×3 (05:05→21:42)
[2017-07-26] MEDS: PANTOPRAZOLE 40 MG INJ IV ×2 (05:06→17:19)
[2017-07-26] MEDS: ONDANSETRON 4 MG INJ IV ×3 (05:06→21:43)
[2017-07-26 08:42] LABS: ALANINE AMINOTRANSFERASE 41 IU/L (13-69); ALBUMIN 3.8 g/dl (3.3-4.9); ALBUMIN/GLOBULIN RATIO 1.52; ALKALINE PHOSPHATASE 67 IU/L (42-121); ANION GAP 19 (8-16); ASPARTATE AMINO TRANSFERASE 26 IU/L (15-46); BILIRUBIN,INDIRECT 0.9 mg/dl (0-1.1); BILIRUBIN,TOTAL 0.9 mg/dl (0.2-1.3); BLOOD UREA NITROGEN 14 mg/dl (7-20); CALCIUM 8.6 mg/dl (8.4-10.2); CARBON DIOXIDE 25 mmol/L (21-31); CHLORIDE 93 mmol/L (97-110); CREATININE 0.73 mg/dl (0.61-1.24); GLUCOSE 250 mg/dl (70-220); MAGNESIUM 1.9 mg/dl (1.7-2.5); POTASSIUM 3.2 mmol/L (3.5-5.1); SODIUM 134 mmol/L (135-144); TOTAL PROTEIN 6.3 g/dl (6.1-8.1)
[2017-07-26] MEDS: INSULIN ASPART [NOVOLOG] 3 ML PEN SC ×7 (08:44→20:18)
[2017-07-26] MEDS: DOCUSATE SODIUM 100 MG CAP PO (08:53)
[2017-07-26] MEDS: BISACODYL (EC) 5 MG TAB PO (08:53)
[2017-07-26] MEDS: POTASSIUM CHLORIDE (SR) 20 MEQ TAB PO (09:56)
[2017-07-26] MEDS: POTASSIUM CHLORIDE 100 ML IVPB ×2 (10:30→12:16)
[2017-07-26] MEDS: INSULIN GLARGINE [LANtus] 3 ML PEN SC (12:13)
[2017-07-26] MEDS: ZOLPIDEM 5 MG TAB PO (21:42)
[2017-07-27] MEDS: ACCU-CHEK XX (00:36)
[2017-07-27] MEDS: METOCLOPRAMIDE 10 MG INJ IV ×2 (00:36→07:48)
[2017-07-27] MEDS: ONDANSETRON 4 MG INJ IV (05:12)
[2017-07-27] MEDS: PANTOPRAZOLE 40 MG INJ IV (05:17)
[2017-07-27] MEDS: ERYTHROMYCIN BASE (EC) 250 MG TAB PO (05:17)
[2017-07-27] MEDS: SOD CHLORIDE 0.9% 1,000 ML IV ×2 (05:19→08:14)
[2017-07-27] MEDS: INSULIN ASPART [NOVOLOG] 3 ML PEN SC ×4 (07:52→11:17)
[2017-07-27] MEDS: INSULIN GLARGINE [LANtus] 3 ML PEN SC (08:00)
[2017-07-27] MEDS: DOCUSATE SODIUM 100 MG CAP PO (08:12)
[2017-07-27] MEDS: BISACODYL (EC) 5 MG TAB PO (08:12)
== END 2017-07-27 13:28 | disposition home or self-care (01) | DRG 74 ==
LOC: TEL 07-24 02:15 → E/R 20:05 → MS1 07-23 03:35
PROVIDERS: Internal Medicine
PROC: 0DB68ZX Excision of Stomach, Via Natural or Artificial Opening Endoscopic, Diagnostic (ICD-10-PCS; principal; 2017-07-25 15:30)
DX: E10.43 Type 1 diabetes mellitus with diabetic autonomic (poly)neuropathy (principal); K26.9 Duodenal ulcer, unspecified as acute or chronic, without hemorrhage or perforation; E10.10 Type 1 diabetes mellitus with ketoacidosis without coma; K31.84 Gastroparesis; E86.0 Dehydration; D53.9 Nutritional anemia, unspecified; K59.00 Constipation, unspecified; K20.9 Esophagitis, unspecified; K29.70 Gastritis, unspecified, without bleeding; D64.9 Anemia, unspecified
CPT/HCPCS: 71045; 74176; 76705; 80048; 80053; 81001; 82962; 83036; 83690; 83735; 84100; 84484; 85025; 88305; 90686; 93005; 96361; 96374; 96375; 96376; 99285-25

== ENCOUNTER 2017-08-08 12:18 | Inpatient (IN) | payer MEDICAID, BC ==
[2017-08-08] MEDS: ONDANSETRON 4 MG INJ IV ×3 (18:32→21:45)
[2017-08-08] MEDS: morphine 4 MG/ML VIAL IV (18:33)
[2017-08-08] MEDS: SODIUM CHLORIDE 0.9% 1L BAG IV* (18:36)
[2017-08-08] MEDS: SOD CHLORIDE 0.9% 1,000 ML IV ×3 (18:38→22:44)
[2017-08-08] MEDS: METOCLOPRAMIDE 10 MG INJ IV ×2 (18:56→21:36)
[2017-08-08] MEDS: CEFTRIAXONE 1 GM/50 ML (PMX) 50 ML IVPB (18:57)
[2017-08-08] MEDS: ACETAMINOPHEN 650 MG SUPP PR (18:57)
[2017-08-08 19:02] LABS: ADD MAN DIFF? NO
[2017-08-08 19:05] LABS: WHITE BLOOD COUNT 7.8 10^3/ul (4.8-10.8)
[2017-08-08 19:05] LABS: ABNORMAL IP MESSAGE 1; BASOPHILS % 0.1 % (0.0-2.0); HEMATOCRIT 37.8 % (42.0-52.0); HEMOGLOBIN 12.7 g/dl (14.0-18.0); LYMPHOCYTES # 0.4 10^3/ul (0.8-2.9); LYMPHOCYTES % 5.4 % (15.0-51.0); MEAN CORPUSCULAR HGB CONC 33.6 g/dl (32.0-37.0); MEAN CORPUSCULAR VOLUME 89.2 fl (82.0-101.0); MEAN PLATELET VOLUME 8.8 fl (7.4-10.4); MONOCYTE # 0.2 10^3/ul (0.3-0.9); MONOCYTES % 1.9 % (0.0-11.0); NEUTROPHIL # 7.2 10^3/ul (1.6-7.5); NEUTROPHILS % 92.2 % (39.0-77.0); PLATELET COUNT 297 10^3/UL (140-415); RED BLOOD COUNT 4.24 10^6/ul (4.70-6.10); RED CELL DISTRIBUTION WIDTH 12.2 % (11.5-14.5)
[2017-08-08 19:24] LABS: INR 0.98; PROTIME 13.1 Sec (11.9-14.9)
[2017-08-08 19:29] LABS: ALANINE AMINOTRANSFERASE 66 IU/L (13-69); ALBUMIN 4.7 g/dl (3.3-4.9); ALBUMIN/GLOBULIN RATIO 1.46; ALKALINE PHOSPHATASE 87 IU/L (42-121); ANION GAP 19 (8-16); ASPARTATE AMINO TRANSFERASE 52 IU/L (15-46); BILIRUBIN,INDIRECT 0.6 mg/dl (0-1.1); BILIRUBIN,TOTAL 0.6 mg/dl (0.2-1.3); BLOOD UREA NITROGEN 15 mg/dl (7-20); CALCIUM 9.9 mg/dl (8.4-10.2); CARBON DIOXIDE 28 mmol/L (21-31); CHLORIDE 96 mmol/L (97-110); CREATININE 0.82 mg/dl (0.61-1.24); GLUCOSE 316 mg/dl (70-220); LIPASE 25 U/L (23-300); POTASSIUM 4.8 mmol/L (3.5-5.1); SODIUM 138 mmol/L (135-144); TOTAL PROTEIN 7.9 g/dl (6.1-8.1)
[2017-08-08 19:32] LABS: LACTIC ACID 2.1 mmol/L (0.5-2.0)
[2017-08-08] MEDS: INSULIN LISPRO 100 UNIT/ML VIAL SC (20:19)
[2017-08-08 20:27] LABS: ADD UMIC YES; UR ASCORBIC ACID 20 mg/dL (NEGATIVE); UR BILIRUBIN (Dip) NEGATIVE (NEGATIVE); UR BLOOD (Dip) NEGATIVE (NEGATIVE); UR CLARITY CLEAR (CLEAR); UR COLOR YELLOW (YELLOW); UR GLUCOSE (Dip) 3+ mg/dL (NEGATIVE); UR KETONES (Dip) 2+ mg/dL (NEGATIVE); UR LEUKOCYTE ESTERASE (Dip) NEGATIVE Leu/ul (NEGATIVE); UR NITRITE (Dip) NEGATIVE (NEGATIVE); UR RBC 3 /HPF (0-5); UR SPECIFIC GRAVITY (Dip) 1.029 (1.003-1.030); UR TOTAL PROTEIN (Dip) 1+ mg/dl (NEGATIVE); UR UROBILINOGEN (Dip) NEGATIVE (NEGATIVE); UR WBC 0 /HPF (0-5)
[2017-08-08] MEDS ORDERED: NACL 0.9% 3 ML SYG IV (21:30)
[2017-08-08] MEDS ORDERED: ACETAMINOPHEN 325 MG TAB PO (21:30)
[2017-08-08] MEDS ORDERED: GLUCOSE GEL 15 GRAM TUBE BUCCAL (21:30)
[2017-08-08] MEDS ORDERED: DEXTROSE 50% 50 ML SYRINGE IV ×2 (21:30)
[2017-08-08] MEDS ORDERED: GLUCAGON 1 MG INJ IM (21:30)
[2017-08-08] MEDS ORDERED: GLUCOSE GEL 15 GRAM TUBE PO ×2 (21:30)
[2017-08-08] MEDS: morphine 2 MG INJ IV (21:37)
[2017-08-08 21:38] LABS: LACTIC ACID 1.3 mmol/L (0.5-2.0)
[2017-08-08] MEDS ORDERED: hydrALAzine 20 MG INJ IV (22:00)
[2017-08-09] MEDS: SOD CHLORIDE 0.9% 1,000 ML IV ×3 (00:53→21:32)
[2017-08-09] MEDS: INSULIN ASPART [NOVOLOG] 3 ML PEN SC ×6 (00:58→20:37)
[2017-08-09] MEDS: ACCU-CHEK XX (00:59)
[2017-08-09] MEDS: METOCLOPRAMIDE 10 MG INJ IV ×4 (03:04→20:38)
[2017-08-09] MEDS: ONDANSETRON 4 MG INJ IV ×4 (03:04→21:32)
[2017-08-09] MEDS: PANTOPRAZOLE 40 MG INJ IV (05:25)
[2017-08-09 06:38] LABS: ADD MAN DIFF? NO
[2017-08-09 06:48] LABS: WHITE BLOOD COUNT 7.5 10^3/ul (4.8-10.8)
[2017-08-09 06:48] LABS: BASOPHILS % 0.3 % (0.0-2.0); HEMATOCRIT 30.8 % (42.0-52.0); HEMOGLOBIN 10.5 g/dl (14.0-18.0); LYMPHOCYTES # 1.2 10^3/ul (0.8-2.9); LYMPHOCYTES % 15.6 % (15.0-51.0); MEAN CORPUSCULAR HEMOGLOBIN 30.8 pg (29.0-33.0); MEAN CORPUSCULAR HGB CONC 34.1 g/dl (32.0-37.0); MEAN CORPUSCULAR VOLUME 90.3 fl (82.0-101.0); MEAN PLATELET VOLUME 8.9 fl (7.4-10.4); MONOCYTE # 0.6 10^3/ul (0.3-0.9); MONOCYTES % 7.5 % (0.0-11.0); NEUTROPHIL # 5.7 10^3/ul (1.6-7.5); NEUTROPHILS % 76.2 % (39.0-77.0); PLATELET COUNT 239 10^3/UL (140-415); RED BLOOD COUNT 3.41 10^6/ul (4.70-6.10); RED CELL DISTRIBUTION WIDTH 12.3 % (11.5-14.5)
[2017-08-09 07:16] LABS: ALANINE AMINOTRANSFERASE 61 IU/L (13-69); ALBUMIN 3.4 g/dl (3.3-4.9); ALBUMIN/GLOBULIN RATIO 1.21; ALKALINE PHOSPHATASE 59 IU/L (42-121); ANION GAP 14 (8-16); ASPARTATE AMINO TRANSFERASE 35 IU/L (15-46); BILIRUBIN,INDIRECT 0.3 mg/dl (0-1.1); BILIRUBIN,TOTAL 0.3 mg/dl (0.2-1.3); BLOOD UREA NITROGEN 12 mg/dl (7-20); CALCIUM 8.6 mg/dl (8.4-10.2); CARBON DIOXIDE 26 mmol/L (21-31); CHLORIDE 104 mmol/L (97-110); CREATININE 0.65 mg/dl (0.61-1.24); GLUCOSE 149 mg/dl (70-220); POTASSIUM 3.7 mmol/L (3.5-5.1); SODIUM 140 mmol/L (135-144); TOTAL PROTEIN 6.2 g/dl (6.1-8.1)
[2017-08-09 20:04] LABS: AMPHETAMINE/METHAMPHETAMINE Negative (NEGATIVE); OPIATES Negative (NEGATIVE)
[2017-08-09 20:11] LABS: BARBITURATES Negative (NEGATIVE); BENZODIAZEPINES Negative (NEGATIVE); CANNABINOIDS Negative (NEGATIVE); COCAINE Negative (NEGATIVE)
[2017-08-09] MEDS: INSULIN GLARGINE [LANtus] 3 ML PEN SC (20:38)
[2017-08-10] MEDS: ONDANSETRON 4 MG INJ IV (01:35)
[2017-08-10] MEDS: ACCU-CHEK XX (01:36)
[2017-08-10] MEDS: METOCLOPRAMIDE 10 MG INJ IV ×4 (03:24→21:39)
[2017-08-10] MEDS: PANTOPRAZOLE 40 MG INJ IV (05:03)
[2017-08-10] MEDS: ONDANSETRON INJ 8 MG in DEXTROSE 5% 50 ML IV ×2 (05:03→22:57)
[2017-08-10] MEDS: SOD CHLORIDE 0.9% 1,000 ML IV ×2 (05:06→15:42)
[2017-08-10 05:32] LABS: ADD MAN DIFF? NO
[2017-08-10 05:40] LABS: BASOPHILS % 0.4 % (0.0-2.0); HEMATOCRIT 31.1 % (42.0-52.0); HEMOGLOBIN 10.8 g/dl (14.0-18.0); LYMPHOCYTES % 18.9 % (15.0-51.0); MEAN CORPUSCULAR HEMOGLOBIN 30.4 pg (29.0-33.0); MEAN CORPUSCULAR HGB CONC 34.7 g/dl (32.0-37.0); MEAN CORPUSCULAR VOLUME 87.6 fl (82.0-101.0); MEAN PLATELET VOLUME 8.8 fl (7.4-10.4); MONOCYTE # 0.4 10^3/ul (0.3-0.9); NEUTROPHIL # 3.7 10^3/ul (1.6-7.5); NEUTROPHILS % 73.3 % (39.0-77.0); PLATELET COUNT 218 10^3/UL (140-415); RED BLOOD COUNT 3.55 10^6/ul (4.70-6.10); RED CELL DISTRIBUTION WIDTH 11.9 % (11.5-14.5)
[2017-08-10 06:16] LABS: ANION GAP 15 (8-16); BLOOD UREA NITROGEN 6 mg/dl (7-20); CALCIUM 9.2 mg/dl (8.4-10.2); CARBON DIOXIDE 31 mmol/L (21-31); CHLORIDE 96 mmol/L (97-110); CREATININE 0.66 mg/dl (0.61-1.24); GLUCOSE 113 mg/dl (70-220); MAGNESIUM 1.7 mg/dl (1.7-2.5); POTASSIUM 3.6 mmol/L (3.5-5.1); SODIUM 138 mmol/L (135-144)
[2017-08-10] MEDS: INSULIN ASPART [NOVOLOG] 3 ML PEN SC ×4 (07:30→20:25)
[2017-08-10] MEDS: morphine 2 MG INJ IV (12:10)
[2017-08-10] MEDS: INSULIN GLARGINE [LANtus] 3 ML PEN SC (20:24)
[2017-08-11] MEDS: SOD CHLORIDE 0.9% 1,000 ML IV ×2 (00:51→09:09)
[2017-08-11] MEDS: ACCU-CHEK XX (02:05)
[2017-08-11] MEDS: METOCLOPRAMIDE 10 MG INJ IV ×2 (03:32→09:05)
[2017-08-11 05:08] LABS: ADD MAN DIFF? NO
[2017-08-11] MEDS: PANTOPRAZOLE 40 MG INJ IV (05:09)
[2017-08-11 05:10] LABS: WHITE BLOOD COUNT 4.4 10^3/ul (4.8-10.8)
[2017-08-11 05:10] LABS: BASOPHILS % 0.2 % (0.0-2.0); HEMATOCRIT 32.3 % (42.0-52.0); HEMOGLOBIN 11.6 g/dl (14.0-18.0); LYMPHOCYTES # 1.4 10^3/ul (0.8-2.9); LYMPHOCYTES % 30.6 % (15.0-51.0); MEAN CORPUSCULAR HEMOGLOBIN 30.9 pg (29.0-33.0); MEAN CORPUSCULAR HGB CONC 35.9 g/dl (32.0-37.0); MEAN CORPUSCULAR VOLUME 85.9 fl (82.0-101.0); MEAN PLATELET VOLUME 8.6 fl (7.4-10.4); MONOCYTE # 0.5 10^3/ul (0.3-0.9); MONOCYTES % 11.3 % (0.0-11.0); NEUTROPHIL # 2.5 10^3/ul (1.6-7.5); NEUTROPHILS % 57.7 % (39.0-77.0); PLATELET COUNT 220 10^3/UL (140-415); RED BLOOD COUNT 3.76 10^6/ul (4.70-6.10); RED CELL DISTRIBUTION WIDTH 11.7 % (11.5-14.5)
[2017-08-11 05:35] LABS: ANION GAP 10 (8-16); BLOOD UREA NITROGEN 5 mg/dl (7-20); CARBON DIOXIDE 33 mmol/L (21-31); CHLORIDE 101 mmol/L (97-110); GLUCOSE 80 mg/dl (70-220); POTASSIUM 3.1 mmol/L (3.5-5.1); SODIUM 141 mmol/L (135-144)
[2017-08-11] MEDS: INSULIN ASPART [NOVOLOG] 3 ML PEN SC ×2 (07:30→12:31)
[2017-08-11] MEDS: POTASSIUM CHLORIDE (SR) 20 MEQ TAB PO (12:33)
== END 2017-08-11 15:53 | disposition home or self-care (01) | DRG 74 ==
LOC: E/R 12:18 → PP2 21:06
PROVIDERS: Family Medicine
DX: E10.43 Type 1 diabetes mellitus with diabetic autonomic (poly)neuropathy (principal); E10.65 Type 1 diabetes mellitus with hyperglycemia; K31.84 Gastroparesis; R91.8 Other nonspecific abnormal finding of lung field; R00.0 Tachycardia, unspecified; E86.0 Dehydration; R91.1 Solitary pulmonary nodule; Z79.4 Long term (current) use of insulin
CPT/HCPCS: 36415; 71045; 74176; 80048; 80053; 80307; 81001; 82962; 83605; 83690; 83735; 85025; 85610; 87040; 87400; 96372; 96374; 96375; 96376; 99285-25

== ENCOUNTER 2017-08-20 23:26 | Inpatient (IN) | payer MEDICAID ==
[2017-08-21] MEDS: ONDANSETRON 4 MG INJ IV (01:20)
[2017-08-21] MEDS: SOD CHLORIDE 0.9% 1,000 ML IV ×4 (01:20→17:26)
[2017-08-21] MEDS: morphine 4 MG/ML VIAL IV (01:20)
[2017-08-21 01:29] LABS: ADD MAN DIFF? NO
[2017-08-21 01:34] LABS: WHITE BLOOD COUNT 7.7 10^3/ul (4.8-10.8)
[2017-08-21 01:34] LABS: BASOPHILS % 0.4 % (0.0-2.0); HEMATOCRIT 37.7 % (42.0-52.0); HEMOGLOBIN 12.9 g/dl (14.0-18.0); LYMPHOCYTES # 0.9 10^3/ul (0.8-2.9); LYMPHOCYTES % 11.3 % (15.0-51.0); MEAN CORPUSCULAR HEMOGLOBIN 30.2 pg (29.0-33.0); MEAN CORPUSCULAR HGB CONC 34.2 g/dl (32.0-37.0); MEAN CORPUSCULAR VOLUME 88.3 fl (82.0-101.0); MEAN PLATELET VOLUME 9.1 fl (7.4-10.4); MONOCYTE # 0.3 10^3/ul (0.3-0.9); MONOCYTES % 3.8 % (0.0-11.0); NEUTROPHIL # 6.5 10^3/ul (1.6-7.5); NEUTROPHILS % 84.1 % (39.0-77.0); PLATELET COUNT 235 10^3/UL (140-415); RED BLOOD COUNT 4.27 10^6/ul (4.70-6.10); RED CELL DISTRIBUTION WIDTH 12.2 % (11.5-14.5)
[2017-08-21] MEDS: DIAZEPAM 5 MG/ML SYG IV (01:56)
[2017-08-21 02:29] LABS: ALANINE AMINOTRANSFERASE 37 IU/L (13-69); ALBUMIN 5.2 g/dl (3.3-4.9); ALBUMIN/GLOBULIN RATIO 1.52; ALKALINE PHOSPHATASE 82 IU/L (42-121); ANION GAP 24 (8-16); ASPARTATE AMINO TRANSFERASE 34 IU/L (15-46); BILIRUBIN,INDIRECT 0.4 mg/dl (0-1.1); BILIRUBIN,TOTAL 0.4 mg/dl (0.2-1.3); BLOOD UREA NITROGEN 26 mg/dl (7-20); CALCIUM 10.4 mg/dl (8.4-10.2); CARBON DIOXIDE 26 mmol/L (21-31); CHLORIDE 98 mmol/L (97-110); CREATININE 1.01 mg/dl (0.61-1.24); GLUCOSE 261 mg/dl (70-220); LIPASE 25 U/L (23-300); POTASSIUM 5.1 mmol/L (3.5-5.1); SODIUM 143 mmol/L (135-144); TOTAL PROTEIN 8.6 g/dl (6.1-8.1)
[2017-08-21 02:38] LABS: ADD UMIC YES; UR ASCORBIC ACID 40 mg/dL (NEGATIVE); UR BILIRUBIN (Dip) NEGATIVE (NEGATIVE); UR BLOOD (Dip) NEGATIVE (NEGATIVE); UR CLARITY CLEAR (CLEAR); UR COLOR YELLOW (YELLOW); UR GLUCOSE (Dip) 3+ mg/dL (NEGATIVE); UR KETONES (Dip) 1+ mg/dL (NEGATIVE); UR LEUKOCYTE ESTERASE (Dip) NEGATIVE Leu/ul (NEGATIVE); UR MUCUS FEW /HPF (NONE SEEN); UR NITRITE (Dip) NEGATIVE (NEGATIVE); UR RBC 4 /HPF (0-5); UR SPECIFIC GRAVITY (Dip) 1.027 (1.003-1.030); UR TOTAL PROTEIN (Dip) 1+ mg/dl (NEGATIVE); UR UROBILINOGEN (Dip) NEGATIVE (NEGATIVE); UR WBC 0 /HPF (0-5)
[2017-08-21] MEDS: METOCLOPRAMIDE 10 MG INJ IV ×3 (05:40→17:26)
[2017-08-21] MEDS: PANTOPRAZOLE 40 MG INJ IV (06:54)
[2017-08-21] MEDS: SOD CHLORIDE 0.9% 500 ML IV (07:22)
[2017-08-21] MEDS: morphine 2 MG INJ IV (07:23)
[2017-08-21 09:31] LABS: CREATINE KINASE 81 IU/L (23-200)
[2017-08-21] MEDS: INSULIN ASPART [NOVOLOG] 3 ML PEN SC ×2 (09:41→12:47)
[2017-08-21 09:43] LABS: CK INDEX 0.7; TROPONIN-I < 0.012 ng/ml (0.00-0.12)
[2017-08-21] MEDS ORDERED: ACETAMINOPHEN 325 MG TAB PO (12:00)
[2017-08-21] MEDS ORDERED: morphine 2 MG INJ IV (12:00)
[2017-08-21 12:52] LABS: AMPHETAMINE/METHAMPHETAMINE Negative (NEGATIVE); BARBITURATES Negative (NEGATIVE); BENZODIAZEPINES Negative (NEGATIVE); CANNABINOIDS Negative (NEGATIVE); COCAINE Negative (NEGATIVE); OPIATES Positive (NEGATIVE)
[2017-08-21 12:54] LABS: CREATINE KINASE 74 IU/L (23-200)
[2017-08-21] MEDS ORDERED: GLUCOSE GEL 15 GRAM TUBE PO ×2 (13:00)
[2017-08-21] MEDS ORDERED: DEXTROSE 50% 50 ML SYRINGE IV ×2 (13:00)
[2017-08-21] MEDS ORDERED: GLUCAGON 1 MG INJ IM (13:00)
[2017-08-21] MEDS ORDERED: GLUCOSE GEL 15 GRAM TUBE BUCCAL (13:00)
[2017-08-21 13:07] LABS: CK INDEX 0.7
[2017-08-21 13:15] LABS: CK-MB 0.54 ng/ml (0.0-2.4); TROPONIN-I < 0.012 ng/ml (0.00-0.12)
[2017-08-21] MEDS: Insulin NOVOLOG SS MODERATE Algorithm (SS with meals and bedtime) SC ×2 (17:05→21:31)
[2017-08-21] MEDS ORDERED: INSULIN ASPART [NOVOLOG] 3 ML PEN SC (17:05)
[2017-08-21] MEDS: INSULIN GLARGINE [LANtus] 3 ML PEN SC (21:32)
[2017-08-22] MEDS: METOCLOPRAMIDE 10 MG INJ IV ×4 (00:14→17:30)
[2017-08-22] MEDS: ACCUCHECK AT 2AM (Patients on SS coverage) XX (02:00)
[2017-08-22] MEDS ORDERED: ACCU-CHEK XX (02:00)
[2017-08-22] MEDS: SOD CHLORIDE 0.9% 1,000 ML IV (02:45)
[2017-08-22] MEDS: PANTOPRAZOLE 40 MG INJ IV (05:48)
[2017-08-22] MEDS: Insulin NOVOLOG SS MODERATE Algorithm (SS with meals and bedtime) SC ×4 (07:30→20:26)
[2017-08-22] MEDS: INSULIN GLARGINE [LANtus] 3 ML PEN SC (20:26)
== END 2017-08-22 22:25 | disposition home or self-care (01) | DRG 74 ==
LOC: MS4 08-22 01:19 → E/R 23:26 → MS3 08-21 05:20
PROVIDERS: Family Medicine
DX: E11.43 Type 2 diabetes mellitus with diabetic autonomic (poly)neuropathy (principal); R00.0 Tachycardia, unspecified; R91.1 Solitary pulmonary nodule
CPT/HCPCS: 36415; 74018; 80053; 80307; 81001; 82550; 82553; 82962; 83690; 84484; 85025; 87040; 87086; 96374; 96375; 99285-25

== ENCOUNTER 2017-11-06 10:48 | Emergency (ER) | payer OTHER, MEDICAID ==
[2017-11-06 12:00] LABS: ADD MAN DIFF? NO; BASOPHILS % 0.2 % (0.0-2.0); HEMATOCRIT 41.7 % (42.0-52.0); HEMOGLOBIN 14.4 g/dl (14.0-18.0); LYMPHOCYTES # 1.1 10^3/ul (0.8-2.9); LYMPHOCYTES % 9.1 % (15.0-51.0); MEAN CORPUSCULAR HEMOGLOBIN 29.8 pg (29.0-33.0); MEAN CORPUSCULAR HGB CONC 34.5 g/dl (32.0-37.0); MEAN CORPUSCULAR VOLUME 86.3 fl (82.0-101.0); MEAN PLATELET VOLUME 9.5 fl (7.4-10.4); MONOCYTE # 0.8 10^3/ul (0.3-0.9); NEUTROPHIL # 9.9 10^3/ul (1.6-7.5); NEUTROPHILS % 83.4 % (39.0-77.0); PLATELET COUNT 214 10^3/UL (140-415); RED BLOOD COUNT 4.83 10^6/ul (4.70-6.10); RED CELL DISTRIBUTION WIDTH 12.2 % (11.5-14.5)
[2017-11-06 12:00] LABS: WHITE BLOOD COUNT 11.9 10^3/ul (4.8-10.8)
[2017-11-06] MEDS: ONDANSETRON 4 MG INJ IV (12:01)
[2017-11-06] MEDS: METOCLOPRAMIDE 10 MG INJ IV (12:01)
[2017-11-06] MEDS: SOD CHLORIDE 0.9% 1,000 ML IV (12:02)
[2017-11-06 12:29] LABS: ALANINE AMINOTRANSFERASE 56 IU/L (13-69); ALBUMIN 4.9 g/dl (3.3-4.9); ALBUMIN/GLOBULIN RATIO 1.16; ALKALINE PHOSPHATASE 109 IU/L (42-121); ANION GAP 18 (8-16); ASPARTATE AMINO TRANSFERASE 40 IU/L (15-46); BILIRUBIN,INDIRECT 1.4 mg/dl (0-1.1); BILIRUBIN,TOTAL 1.4 mg/dl (0.2-1.3); BLOOD UREA NITROGEN 39 mg/dl (7-20); CALCIUM 9.7 mg/dl (8.4-10.2); CARBON DIOXIDE 31 mmol/L (21-31); CHLORIDE 94 mmol/L (97-110); GLUCOSE 228 mg/dl (70-220); LIPASE 20 U/L (23-300); POTASSIUM 4.2 mmol/L (3.5-5.1); SODIUM 139 mmol/L (135-144); TOTAL PROTEIN 9.1 g/dl (6.1-8.1)
[2017-11-06 14:23] LABS: ADD UMIC YES; UR ASCORBIC ACID 40 mg/dL (NEGATIVE); UR BILIRUBIN (Dip) NEGATIVE (NEGATIVE); UR BLOOD (Dip) NEGATIVE (NEGATIVE); UR CLARITY CLEAR (CLEAR); UR COLOR YELLOW (YELLOW); UR GLUCOSE (Dip) 3+ mg/dL (NEGATIVE); UR KETONES (Dip) 2+ mg/dL (NEGATIVE); UR LEUKOCYTE ESTERASE (Dip) NEGATIVE Leu/ul (NEGATIVE); UR NITRITE (Dip) NEGATIVE (NEGATIVE); UR RBC 3 /HPF (0-5); UR SPECIFIC GRAVITY (Dip) 1.035 (1.003-1.030); UR TOTAL PROTEIN (Dip) 2+ mg/dl (NEGATIVE); UR UROBILINOGEN (Dip) NEGATIVE (NEGATIVE); UR WBC 1 /HPF (0-5)
== END 2017-11-06 14:40 | disposition home or self-care (01) ==
LOC: FTE 10:48
DX: R11.2 Nausea with vomiting, unspecified (principal); E10.9 Type 1 diabetes mellitus without complications; Z79.4 Long term (current) use of insulin
CPT/HCPCS: 36415; 80053; 81001; 83690; 85025; 96374; 96375; 99284-25

== ENCOUNTER 2017-11-15 05:15 | Observation (INO) | payer OTHER ==
[2017-11-15] MEDS ORDERED: LACTATED RINGER'S 1,000 ML IV (05:29)
[2017-11-15] MEDS: ONDANSETRON 4 MG INJ IV ×5 (05:43→18:48)
[2017-11-15 05:57] LABS: ADD MAN DIFF? NO
[2017-11-15 06:03] LABS: WHITE BLOOD COUNT 8.9 10^3/ul (4.8-10.8)
[2017-11-15 06:04] LABS: BASOPHILS % 0.3 % (0.0-2.0); HEMATOCRIT 42.6 % (42.0-52.0); HEMOGLOBIN 14.8 g/dl (14.0-18.0); LYMPHOCYTES # 1.9 10^3/ul (0.8-2.9); LYMPHOCYTES % 21.6 % (15.0-51.0); MEAN CORPUSCULAR HEMOGLOBIN 29.7 pg (29.0-33.0); MEAN CORPUSCULAR HGB CONC 34.7 g/dl (32.0-37.0); MEAN CORPUSCULAR VOLUME 85.5 fl (82.0-101.0); MEAN PLATELET VOLUME 9.6 fl (7.4-10.4); MONOCYTE # 0.7 10^3/ul (0.3-0.9); MONOCYTES % 8.1 % (0.0-11.0); NEUTROPHIL # 6.2 10^3/ul (1.6-7.5); NEUTROPHILS % 69.7 % (39.0-77.0); PLATELET COUNT 273 10^3/UL (140-415); RED BLOOD COUNT 4.98 10^6/ul (4.70-6.10); RED CELL DISTRIBUTION WIDTH 12.3 % (11.5-14.5)
[2017-11-15 06:28] LABS: ALANINE AMINOTRANSFERASE 38 IU/L (13-69); ALBUMIN 4.6 g/dl (3.3-4.9); ALBUMIN/GLOBULIN RATIO 1.17; ALKALINE PHOSPHATASE 101 IU/L (42-121); ANION GAP 18 (8-16); ASPARTATE AMINO TRANSFERASE 35 IU/L (15-46); BILIRUBIN,INDIRECT 1.3 mg/dl (0-1.1); BILIRUBIN,TOTAL 1.3 mg/dl (0.2-1.3); BLOOD UREA NITROGEN 29 mg/dl (7-20); CALCIUM 9.7 mg/dl (8.4-10.2); CARBON DIOXIDE 29 mmol/L (21-31); CHLORIDE 94 mmol/L (97-110); CREATININE 0.95 mg/dl (0.61-1.24); GLUCOSE 363 mg/dl (70-220); LIPASE 25 U/L (23-300); POTASSIUM 4.6 mmol/L (3.5-5.1); SODIUM 136 mmol/L (135-144); TOTAL PROTEIN 8.5 g/dl (6.1-8.1)
[2017-11-15 06:29] LABS: MODE ROOM AIR; MetHgb Venous 0.2 %; Sample Type Blood venous; Site OTHER; Venous COHb 0.9 %; Venous Fraction OxyHgb 44.1 %; Venous Oxygen Sat 44.6 mmHG (55.0-75.0); Venous Total Hemglobin 15.9 g/dl
[2017-11-15] MEDS: SOD CHLORIDE 0.9% 2,000 ML IV (06:36)
[2017-11-15 06:39] LABS: TROPONIN-I 0.011 ng/ml (0.000-0.120)
[2017-11-15] MEDS: HYDROmorphONE 1 MG/ML SYG IV (06:40)
[2017-11-15] MEDS ORDERED: SOD CHLORIDE 0.9% 1,000 ML IV (06:56)
[2017-11-15] MEDS: INSULIN LISPRO 100 UNIT/ML VIAL SC (07:20)
[2017-11-15] MEDS ORDERED: ACETAMINOPHEN 325 MG TAB PO ×2 (08:00→11:30)
[2017-11-15] MEDS ORDERED: NS + KCL 20 MEQ 1,000 ML IV (11:08)
[2017-11-15] MEDS ORDERED: NACL 0.9% 3 ML SYG IV (11:30)
[2017-11-15] MEDS ORDERED: GLUCOSE GEL 15 GRAM TUBE PO ×2 (12:30→12:31)
[2017-11-15] MEDS ORDERED: GLUCOSE GEL 15 GRAM TUBE BUCCAL (12:30)
[2017-11-15] MEDS ORDERED: GLUCAGON 1 MG INJ IM (12:30)
[2017-11-15] MEDS ORDERED: DEXTROSE 50% 50 ML SYRINGE IV (12:30)
[2017-11-15] MEDS: METOCLOPRAMIDE 10 MG INJ IV ×2 (12:32→17:25)
[2017-11-15] MEDS: SOD CHLORIDE 0.9% 1,000 ML IV ×2 (12:32→18:49)
[2017-11-15] MEDS: INSULIN ASPART [NOVOLOG] 3 ML PEN SC ×3 (12:59→21:04)
[2017-11-15] MEDS: ERYTHROMYCIN BASE (EC) 250 MG TAB PO ×2 (13:43→21:25)
[2017-11-15] MEDS: SOD CHLORIDE 0.9% 250 ML IV (18:49)
[2017-11-15] MEDS ORDERED: DIPHENHYDRAMINE 50 MG INJ IV (20:00)
[2017-11-15] MEDS: INSULIN GLARGINE [LANtus] 3 ML PEN SC (21:07)
[2017-11-15] MEDS: AMITRIPTYLINE 25 MG TAB PO (21:10)
[2017-11-15] MEDS: ATORVASTATIN 40 MG TAB PO (21:11)
[2017-11-15] MEDS: FAMOTIDINE 20 MG INJ IV (21:11)
[2017-11-15] MEDS: DIPHENHYDRAMINE 50 MG INJ IV (21:29)
[2017-11-16] MEDS: METOCLOPRAMIDE 10 MG INJ IV ×2 (01:16→05:51)
[2017-11-16] MEDS ORDERED: ONDANSETRON INJ 8 MG in SOD CHLORIDE 0.9% 50 ML IV (01:30)
[2017-11-16] MEDS: INSULIN ASPART [NOVOLOG] 3 ML PEN SC ×6 (01:36→12:12)
[2017-11-16] MEDS ORDERED: ONDANSETRON 4 MG INJ IV (02:00)
[2017-11-16] MEDS ORDERED: ACCU-CHEK XX (02:00)
[2017-11-16] MEDS: SOD CHLORIDE 0.9% 1,000 ML IV (04:28)
[2017-11-16] MEDS: DEXTROSE 50% 50 ML SYRINGE IV ×2 (05:07→05:12)
[2017-11-16] MEDS: ERYTHROMYCIN BASE (EC) 250 MG TAB PO (05:51)
[2017-11-16 06:34] LABS: ADD MAN DIFF? NO
[2017-11-16 06:50] LABS: BASOPHILS % 0.2 % (0.0-2.0); EOSINOPHILS % 0.2 % (0.0-7.0); HEMATOCRIT 35.6 % (42.0-52.0); HEMOGLOBIN 11.9 g/dl (14.0-18.0); LYMPHOCYTES # 1.5 10^3/ul (0.8-2.9); LYMPHOCYTES % 26.1 % (15.0-51.0); MEAN CORPUSCULAR HEMOGLOBIN 29.8 pg (29.0-33.0); MEAN CORPUSCULAR HGB CONC 33.4 g/dl (32.0-37.0); MEAN CORPUSCULAR VOLUME 89.2 fl (82.0-101.0); MEAN PLATELET VOLUME 9.3 fl (7.4-10.4); MONOCYTE # 0.5 10^3/ul (0.3-0.9); MONOCYTES % 9.6 % (0.0-11.0); NEUTROPHIL # 3.6 10^3/ul (1.6-7.5); NEUTROPHILS % 63.4 % (39.0-77.0); PLATELET COUNT 213 10^3/UL (140-415); RED BLOOD COUNT 3.99 10^6/ul (4.70-6.10); RED CELL DISTRIBUTION WIDTH 12.1 % (11.5-14.5)
[2017-11-16 06:50] LABS: WHITE BLOOD COUNT 5.6 10^3/ul (4.8-10.8)
[2017-11-16 06:59] LABS: HEMOGLOBIN A1C 10.5 % (0-5.9)
[2017-11-16 07:10] LABS: ALANINE AMINOTRANSFERASE 32 IU/L (13-69); ALBUMIN 3.4 g/dl (3.3-4.9); ALBUMIN/GLOBULIN RATIO 1.21; ALKALINE PHOSPHATASE 68 IU/L (42-121); ANION GAP 13 (8-16); ASPARTATE AMINO TRANSFERASE 22 IU/L (15-46); BILIRUBIN,INDIRECT 1.2 mg/dl (0-1.1); BILIRUBIN,TOTAL 1.2 mg/dl (0.2-1.3); BLOOD UREA NITROGEN 24 mg/dl (7-20); CALCIUM 8.6 mg/dl (8.4-10.2); CARBON DIOXIDE 27 mmol/L (21-31); CHLORIDE 101 mmol/L (97-110); CHOL/HDL RATIO 3.2 RATIO; CHOLESTEROL 138 mg/dl (100-200); CREATININE 0.98 mg/dl (0.61-1.24); GLUCOSE 156 mg/dl (70-220); HDL CHOLESTEROL 43 mg/dl (28-63); LDL CHOLESTEROL,CALCULATED 80 mg/dl; MAGNESIUM 2.1 mg/dl (1.7-2.5); POTASSIUM 3.6 mmol/L (3.5-5.1); SODIUM 137 mmol/L (135-144); TOTAL PROTEIN 6.2 g/dl (6.1-8.1); TRIGLYCERIDES 77 mg/dl (0-149)
[2017-11-16] MEDS: DIPHENHYDRAMINE 50 MG INJ IV (08:22)
[2017-11-16] MEDS: FAMOTIDINE 20 MG INJ IV (08:22)
[2017-11-16] MEDS: METOCLOPRAMIDE 10 MG TAB PO (12:12)
[2017-11-16] MEDS ORDERED: FAMOTIDINE 20 MG TAB PO (21:00)
== END 2017-11-16 14:45 | disposition home or self-care (01) ==
LOC: E/R 05:15 → MS4 07:32
DX: E11.43 Type 2 diabetes mellitus with diabetic autonomic (poly)neuropathy (principal); K31.84 Gastroparesis; Z79.4 Long term (current) use of insulin; E86.0 Dehydration; E78.5 Hyperlipidemia, unspecified; Z83.3 Family history of diabetes mellitus
CPT/HCPCS: 36415; 80053; 80061; 82803; 82962; 83036; 83690; 83735; 84443; 84484; 85025; 93005; 96372; 96374; 96375; 96376; 99285-25; G0378

== ENCOUNTER 2017-11-24 20:31 | Emergency (ER) | payer OTHER ==
[2017-11-24] MEDS: morphine 4 MG/ML VIAL IV (22:36)
[2017-11-24] MEDS: LACTATED RINGER'S 1,000 ML IV (22:36)
[2017-11-24] MEDS: FAMOTIDINE 20 MG INJ IV (22:36)
[2017-11-24] MEDS: LORAZEPAM 2 MG INJ IV (22:37)
[2017-11-24] MEDS: ONDANSETRON 4 MG INJ IV ×2 (22:37→22:54)
[2017-11-24] MEDS: METOCLOPRAMIDE 10 MG INJ IV (22:38)
[2017-11-24] MEDS: SOD CHLORIDE 0.9% 1,000 ML IV (22:55)
[2017-11-24 23:31] LABS: ALANINE AMINOTRANSFERASE 154 IU/L (13-69); ALBUMIN 5.2 g/dl (3.3-4.9); ALBUMIN/GLOBULIN RATIO 1.36; ALKALINE PHOSPHATASE 113 IU/L (42-121); ANION GAP 25 (8-16); ASPARTATE AMINO TRANSFERASE 99 IU/L (15-46); BILIRUBIN,INDIRECT 0.8 mg/dl (0-1.1); BILIRUBIN,TOTAL 0.8 mg/dl (0.2-1.3); BLOOD UREA NITROGEN 16 mg/dl (7-20); CALCIUM 10.7 mg/dl (8.4-10.2); CARBON DIOXIDE 26 mmol/L (21-31); CHLORIDE 96 mmol/L (97-110); CREATININE 0.89 mg/dl (0.61-1.24); GLUCOSE 222 mg/dl (70-220); LIPASE 32 U/L (23-300); SODIUM 142 mmol/L (135-144)
[2017-11-24 23:39] LABS: ADD MAN DIFF? NO
[2017-11-24 23:41] LABS: WHITE BLOOD COUNT 6.5 10^3/ul (4.8-10.8)
[2017-11-24 23:41] LABS: ABNORMAL IP MESSAGE 1; BASOPHILS % 0.2 % (0.0-2.0); HEMATOCRIT 32.7 % (42.0-52.0); HEMOGLOBIN 11.3 g/dl (14.0-18.0); LYMPHOCYTES # 0.4 10^3/ul (0.8-2.9); LYMPHOCYTES % 6.6 % (15.0-51.0); MEAN CORPUSCULAR HEMOGLOBIN 30.7 pg (29.0-33.0); MEAN CORPUSCULAR HGB CONC 34.6 g/dl (32.0-37.0); MEAN CORPUSCULAR VOLUME 88.9 fl (82.0-101.0); MEAN PLATELET VOLUME 9.4 fl (7.4-10.4); MONOCYTE # 0.2 10^3/ul (0.3-0.9); MONOCYTES % 2.8 % (0.0-11.0); NEUTROPHIL # 5.9 10^3/ul (1.6-7.5); NEUTROPHILS % 89.9 % (39.0-77.0); PLATELET COUNT 189 10^3/UL (140-415); POSITIVE DIFF @See below; RED BLOOD COUNT 3.68 10^6/ul (4.70-6.10); RED CELL DISTRIBUTION WIDTH 12.2 % (11.5-14.5)
[2017-11-24 23:47] LABS: LACTIC ACID 2.4 mmol/L (0.5-2.0)
[2017-11-25] MEDS: SOD CHLORIDE 0.9% 1,000 ML IV (00:15)
== END 2017-11-25 02:50 | disposition short-term general hospital (02) ==
LOC: E/R 11-25 02:50
DX: E86.0 Dehydration (principal); G43.A0 Cyclical vomiting, in migraine, not intractable; E10.65 Type 1 diabetes mellitus with hyperglycemia; Z79.4 Long term (current) use of insulin
CPT/HCPCS: 36415; 80053; 83605; 83690; 85025; 93005; 96374; 96375; 99291-25